=== PATIENT | male | born 1945 | race Caucasian/White ===

== ENCOUNTER 2017-02-16 19:35 | Emergency (ER) | payer MEDICARE ==
[2017-02-16] MEDS ORDERED: NS 0.9% 1000 ML* 1,000 ML IV SCH (20:45)
[2017-02-16 20:56] LABS: Hematocrit 45 % (42-52); Hemoglobin 15.2 g/dl (14.0-18.0); Mean Corpuscular HGB Conc 34 g/dl (31-36); Mean Corpuscular Hemoglobin 33 pg (27-31); Mean Corpuscular Volume 99 fL (80-94); Mean Platelet Volume 9 um3 (7.4-10.4); Red Blood Count 4.59 10^6/ul (4.0-5.4); Red Cell Distribution Width 13 % (10.5-15); White Blood Count 8.6 10^3/ul (3.5-10.8)
[2017-02-16] MEDS ORDERED: Magnesium Oxide TAB* 400 MG PO ONE (21:05)
[2017-02-16 21:12] LABS: ALT 49 U/L (7-52); Albumin 3.5 g/dL (3.2-5.2); Alkaline Phosphatase 84 U/L (34-104); BUN/Creatinine Ratio 21.8 (8-20); Blood Urea Nitrogen 22 mg/dL (6-24); C Reactive Protein < 1.00 mg/L (< 5.00); CO2 Carbon Dioxide 26 mmol/L (22-32); Calcium 8.8 mg/dL (8.6-10.3); Chloride 106 mmol/L (101-111); Creatine Kinase 83 U/L (10-223); EGFR African American 93.4 (>60); EGFR Non-African American 72.6 (>60); Globulin 2.6 g/dL (2-4); Glucose 109 mg/dL (70-100); Magnesium 2.1 mg/dL (1.9-2.7); Sodium 136 mmol/L (133-145); Total Protein 6.1 g/dL (6.4-8.9)
[2017-02-16 21:14] LABS: Troponin I 0.01 ng/mL (<0.04)
--- NOTE | 2017-02-16 21:25 | RAD ---
Indication: Palpitations. Hypertension. Chronic obstructive pulmonary disease. Comparison: October 16, 2014 Technique: Upright AP 2050 hours Report: Clear lungs and pleural spaces. Negative for pneumothorax. The heart, pulmonary vasculature, and mediastinal contours are unremarkable. Unremarkable osseous structures and soft tissue contours. IMPRESSION: No evidence for acute intrathoracic disease.
[2017-02-16 21:37] LABS: AST 43 U/L (13-39); Anion Gap 4 mmol/L (2-11); Potassium 3.9 mmol/L (3.5-5.0)
--- NOTE | 2017-02-16 22:27 | ED ---
Ranjan Pierre Benjamin, scribed for Tanner Dunne MD on 02/16/17 at 2049 . Palpitations / Dysrhythmia - HPI Summary HPI Summary: 71yo male who had a physically and mentally stressful last few weeks and experienced palpitations earlier today after he went for a long walk after not exercising for a long time. Pt states having intense workload lately, with 12 hours work per day, 7 days a week, for the past 3 weeks. Pt is also sleep deprived. Pt has hx of frequent PVCs, but not afib. His doctor advised him to come to test for afib. FHx of CAD, and HTN. Pt took 5mg bisoprolol for his heart. Pt states that he is dehydrated right now. - History of Current Complaint Chief Complaint: EDDysrhythmPalp Time Seen by Provider: 02/16/17 20:34 Hx Obtained From: Patient Onset/Duration: Sudden Onset, Lasting Minutes, Still Present Timing: Intermittent Episodes Lasting: Severity Initially: Mild Severity Currently: Mild Character: Irregular - PVCs Aggravating: Nothing Alleviating: Nothing Associated Signs & Symptoms: Negative - Allergy/Home Medications Allergies/Adverse Reactions: Allergies Allergy/AdvReac Type Severity Reaction Status Date / Time Ciprofloxacin [From Cipro] Allergy Severe Congestion Verified 06/18/16 20:48 Penicillins Allergy Intermediate Rash Verified 06/18/16 20:48 PMH/Surg Hx/FS Hx/Imm Hx Cardiovascular History: Reports: Hx Coronary Artery Disease, Hx Hypercholesterolemia, Hx Hypertension, Other Cardiovascular Problems/Disorders - PVCs Respiratory History: Reports: Hx Asthma - YRS.AGO, NOW NOT BAD, Hx Chronic Obstructive Pulmonary Disease (COPD) Sensory History: Reports: Hx Contacts or Glasses Opthamlomology History: Reports: Hx Contacts or Glasses - Surgical History Surgery Procedure, Year, and Place: hernia repair 1949 - Immunization History Date of Tetanus Vaccine: unk Date of Influenza Vaccine: none Infectious Disease History: Denies: Traveled Outside the [place] in Last 30 Days - Family History Known Family History: Positive: Cardiac Disease, Hypertension - Social History Occupation: Employed Full-time Lives: With Family Alcohol Use: Rare Alcohol Amount: 2x month Substance Use Type: Reports: None Hx Tobacco Use: No Smoking Status (MU): Never Smoked Tobacco Review of Systems Constitutional: Negative Eyes: Negative ENT: Negative Positive: Palpitations Respiratory: Negative Gastrointestinal: Negative Genitourinary: Negative Musculoskeletal: Negative Skin: Negative Neurological: Negative Psychological: Normal All Other Systems Reviewed And Are Negative: Yes Physical Exam Triage Information Reviewed: Yes Vital Signs On Initial Exam: Initial Vitals Temp Pulse Resp BP Pulse Ox 96.9 F 68 20 142/80 97 02/16/17 19:38 02/16/17 19:38 02/16/17 19:38 02/16/17 19:38 02/16/17 19:38 Vital Signs Reviewed: Yes Appearance: Positive: Well-Appearing, No Pain Distress, Well-Nourished Skin: Positive: Warm, Skin Color Reflects Adequate Perfusion, Dry Head/Face: Positive: Normal Head/Face Inspection Eyes: Positive: Normal, EOMI ENT: Positive: Normal ENT inspection Neck: Positive: Supple, Nontender Respiratory/Lung Sounds: Positive: Clear to Auscultation, Breath Sounds Present Cardiovascular: Positive: RRR Abdomen Description: Positive: Nontender, Soft Bowel Sounds: Positive: Present Musculoskeletal: Positive: Normal, Strength/ROM Intact Neurological: Positive: Normal, Sensory/Motor Intact, Alert, Oriented to Person Place, Time Psychiatric: Positive: Affect/Mood Appropriate Diagnostics - Vital Signs Vital Signs Temp Pulse Resp BP Pulse Ox 02/16/17 19:38 96.9 F 68 20 142/80 97 - Laboratory Lab Results: Lab Results 02/16/17 02/16/17 02/16/17 Range/Units 20:45 20:45 20:45 WBC 8.6 (3.5-10.8) 10^3/ul RBC 4.59 (4.0-5.4) 10^6/ul Hgb 15.2 (14.0-18.0) g/dl Hct 45 (42-52) % MCV 99 H (80-94) fL MCH 33 H (27-31) pg MCHC 34 (31-36) g/dl RDW 13 (10.5-15) % Plt Count 177 (150-450) 10^3/ul MPV 9 (7.4-10.4) um3 Neut % (Auto) 67.1 (38-83) % Lymph % (Auto) 21.9 L (25-47) % [place] % (Auto) 8.9 (1-9) % Eos % (Auto) 1.2 (0-6) % Baso % (Auto) 0.9 (0-2) % Absolute Neuts (auto) 5.8 (1.5-7.7) 10^3/ul Absolute Lymphs (auto) 1.9 (1.0-4.8) 10^3/ul Absolute Monos (auto) 0.8 (0-0.8) 10^3/ul Absolute Eos (auto) 0.1 (0-0.6) 10^3/ul Absolute Basos (auto) 0.1 (0-0.2) 10^3/ul Absolute Nucleated RBC 0.01 10^3/ul Nucleated RBC % 0.1 INR (Anticoag Therapy) 0.98 (0.89-1.11) APTT 28.6 (26.0-36.3) seconds D-Dimer, Quantitative < 200 (Less Than 230) ng/mL Sodium 136 (133-145) mmol/L Potassium 3.9 (3.5-5.0) mmol/L Chloride 106 (101-111) mmol/L Carbon Dioxide 26 (22-32) mmol/L Anion Gap 4 (2-11) mmol/L BUN 22 (6-24) mg/dL Creatinine 1.01 (0.67-1.17) mg/dL Est GFR ( Amer) 93.4 (>60) Est GFR (Non-Af Amer) 72.6 (>60) BUN/Creatinine Ratio 21.8 H (8-20) Glucose 109 H (70-100) mg/dL Calcium 8.8 (8.6-10.3) mg/dL Magnesium 2.1 (1.9-2.7) mg/dL Total Bilirubin 0.40 (0.2-1.0) mg/dL AST 43 H (13-39) U/L ALT 49 (7-52) U/L Alkaline Phosphatase 84 (34-104) U/L Total Creatine Kinase 83 (10-223) U/L CK-MB (CK-2) 2.0 (0.6-6.3) ng/mL Troponin I 0.01 (<0.04) ng/mL C-Reactive Protein < 1.00 (< 5.00) mg/L B-Natriuretic Peptide ( - 100) pg/mL Total Protein 6.1 L (6.4-8.9) g/dL Albumin 3.5 (3.2-5.2) g/dL Globulin 2.6 (2-4) g/dL Albumin/Globulin Ratio 1.3 (1-3) // Range/Units 20:45 WBC (3.5-10.8) 10^3/ul RBC (4.0-5.4) 10^6/ul Hgb (14.0-18.0) g/dl Hct (42-52) % MCV (80-94) fL MCH (27-31) pg MCHC (31-36) g/dl RDW (10.5-15) % Plt Count (150-450) 10^3/ul MPV (7.4-10.4) um3 Neut % (Auto) (38-83) % Lymph % (Auto) (25-47) % [place] % (Auto) (1-9) % Eos % (Auto) (0-6) % Baso % (Auto) (0-2) % Absolute Neuts (auto) (1.5-7.7) 10^3/ul Absolute Lymphs (auto) (1.0-4.8) 10^3/ul Absolute Monos (auto) (0-0.8) 10^3/ul Absolute Eos (auto) (0-0.6) 10^3/ul Absolute Basos (auto) (0-0.2) 10^3/ul Absolute Nucleated RBC 10^3/ul Nucleated RBC % INR (Anticoag Therapy) (0.89-1.11) APTT (26.0-36.3) seconds D-Dimer, Quantitative (Less Than 230) ng/mL Sodium (133-145) mmol/L Potassium (3.5-5.0) mmol/L Chloride (101-111) mmol/L Carbon Dioxide (22-32) mmol/L Anion Gap (2-11) mmol/L BUN (6-24) mg/dL Creatinine (0.67-1.17) mg/dL Est GFR ( Amer) (>60) Est GFR (Non-Af Amer) (>60) BUN/Creatinine Ratio (8-20) Glucose (70-100) mg/dL Calcium (8.6-10.3) mg/dL Magnesium (1.9-2.7) mg/dL Total Bilirubin (0.2-1.0) mg/dL AST (13-39) U/L ALT (7-52) U/L Alkaline Phosphatase (34-104) U/L Total Creatine Kinase (10-223) U/L CK-MB (CK-2) (0.6-6.3) ng/mL Troponin I (<0.04) ng/mL C-Reactive Protein (< 5.00) mg/L B-Natriuretic Peptide 300 H ( - 100) pg/mL Total Protein (6.4-8.9) g/dL Albumin (3.2-5.2) g/dL Globulin (2-4) g/dL Albumin/Globulin Ratio (1-3) Result Diagrams: 02/16/17 20:45 02/16/17 20:45 Lab Statement: Any lab studies that have been ordered have been reviewed, and results considered in the medical decision making process. - Radiology CXR Xray Interpretation: No Acute Changes Radiology Interpretation Completed By: Radiologist - EKG 1945 Cardiac Rate: NL - 96bpm EKG Rhythm: Sinus Rhythm EKG Interpretation: ventricular bigeminy. EKG Comparison: No Significant Change - from 06/18/16. Course/Dx - Course Course Of Treatment: NO CRITICAL CARE TIME. DISCUSSED RESULTS WITH PATIENT. HE WISHES TO GO HOME. HE HAS AN APPOINTMENT WITH HIS DIMENSION MILL WORKER IN [place] ON . AT DISCHARGE, HE STILL HAD PVCS BUT, WAS NO LONGER IN BIGEMINY. - Diagnoses Provider Diagnoses: Bigeminy, Palpitations Discharge - Discharge Plan Condition: Stable Disposition: HOME Patient Education Materials: Palpitations (ED) Referrals: Tray Wasserman MD [Primary Care Provider] - Additional Instructions: FOLLOW UP WITH YOUR DIMENSION MILL WORKER SCHEDULED. RETURN TO THE EMERGENCY DEPARTMENT FOR ANY WORSENING OF YOUR CONDITION; CHEST PAIN, SHORTNESS OF BREATH, YOU FEEL LIKE YOU ARE GOING TO PASS OUT, YOU FEEL ILL OR QUESTIONS OR CONCERNS. The documentation as recorded by the Ranjan waldron Benjamin accurately reflects the service I personally performed and the decisions made by me, Tanner Dunne MD.
[2017-02-16 22:35] VITALS: BP 118/95
== END 2017-02-16 22:36 | disposition home or self-care (01) ==
LOC: ED 19:35
DX: R00.2 Palpitations (principal); R00.8 Other abnormalities of heart beat
CPT/HCPCS: 36415; 71010; 80053; 82550; 82553; 83735; 83880; 84484; 85025; 85379; 85610; 85730; 86140; 93005; 99284

== ENCOUNTER 2017-02-21 19:38 | Emergency (ER) | payer MEDICARE ==
[2017-02-21 20:44] LABS: Hematocrit 42 % (42-52); Hemoglobin 14.2 g/dl (14.0-18.0); Mean Corpuscular HGB Conc 34 g/dl (31-36); Mean Corpuscular Hemoglobin 34 pg (27-31); Mean Corpuscular Volume 100 fL (80-94); Mean Platelet Volume 9 um3 (7.4-10.4); Red Cell Distribution Width 14 % (10.5-15); White Blood Count 7.4 10^3/ul (3.5-10.8)
[2017-02-21 20:59] LABS: Albumin 3.6 g/dL (3.2-5.2); BUN/Creatinine Ratio 18.1 (8-20); Calcium 8.9 mg/dL (8.6-10.3); EGFR African American 79.6 (>60); EGFR Non-African American 61.9 (>60); Globulin 2.3 g/dL (2-4); Magnesium 2.2 mg/dL (1.9-2.7); Potassium 4.1 mmol/L (3.5-5.0); Total Bilirubin 0.5 mg/dL (0.2-1.0); Total Protein 5.9 g/dL (6.4-8.9)
[2017-02-21 21:01] LABS: Troponin I 0.01 ng/mL (<0.04)
--- NOTE | 2017-02-21 21:16 | ED ---
Hebert Pierre Alok, scribed for Blayne Holden MD on 02/21/17 at 2017 . Palpitations / Dysrhythmia - HPI Summary HPI Summary: 71M presents to the ED for an irregular heart beat accompanied by chest tightness since 1800. Pt was last here 5 days ago for the same irregular rhythm and had EKG/CXR done. Pt notes recent increase in his Bisoprolol medications from 5mg BID to 7.5 mg BID. Pt states that tonight since his Bisoprolol medications were not helping his irregular heart rate taking a total of 17.5 mg today. Pt also took 30 mg of his isosorbide mononitrate today. Pt state he has a follow up appointment with his lead programmer in [place] in two days. - History of Current Complaint Chief Complaint: EDDysrhythmPalp Time Seen by Provider: 02/21/17 20:10 Hx Obtained From: Patient Onset/Duration: Lasting Hours, Still Present Timing: Constant Severity Initially: Moderate Severity Currently: Moderate Character: Irregular Aggravating: Exertion Alleviating: Nothing Associated Signs & Symptoms: Chest Pain - Allergy/Home Medications Allergies/Adverse Reactions: Allergies Allergy/AdvReac Type Severity Reaction Status Date / Time Ciprofloxacin [From Cipro] Allergy Severe Congestion Verified 06/18/16 20:48 Penicillins Allergy Intermediate Rash Verified 06/18/16 20:48 PMH/Surg Hx/FS Hx/Imm Hx Cardiovascular History: Reports: Hx Coronary Artery Disease, Hx Hypercholesterolemia, Hx Hypertension, Other Cardiovascular Problems/Disorders - PVCs Respiratory History: Reports: Hx Asthma - YRS.AGO, NOW NOT BAD, Hx Chronic Obstructive Pulmonary Disease (COPD) Sensory History: Reports: Hx Contacts or Glasses Opthamlomology History: Reports: Hx Contacts or Glasses - Surgical History Surgery Procedure, Year, and Place: hernia repair 1949 - Immunization History Date of Tetanus Vaccine: unk Date of Influenza Vaccine: none Infectious Disease History: No Infectious Disease History: Reports: Traveled Outside the [place] in Last 30 Days - he - Family History Known Family History: Positive: Cardiac Disease, Hypertension - Social History Occupation: Employed Full-time Lives: With Family Alcohol Use: Rare Alcohol Amount: 2x month Substance Use Type: Reports: None Hx Tobacco Use: No Smoking Status (MU): Never Smoked Tobacco Review of Systems Negative: Fever Positive: Palpitations, Chest Pain All Other Systems Reviewed And Are Negative: Yes Physical Exam Triage Information Reviewed: Yes Vital Signs On Initial Exam: Initial Vitals Temp Pulse Resp BP Pulse Ox 98 F 59 16 115/57 96 02/21/17 19:46 02/21/17 19:46 02/21/17 19:46 02/21/17 19:46 02/21/17 19:46 Vital Signs Reviewed: Yes Appearance: Positive: Well-Appearing, No Pain Distress Skin: Positive: Warm Head/Face: Positive: Normal Head/Face Inspection ENT: Positive: Hearing grossly normal Neck: Positive: Supple Respiratory/Lung Sounds: Positive: Breath Sounds Present Cardiovascular: Positive: RRR - occaional extrasystoles Abdomen Description: Positive: Nontender, Soft Bowel Sounds: Positive: Present Musculoskeletal: Positive: Strength/ROM Intact Neurological: Positive: Alert, Oriented to Person Place, Time Psychiatric: Positive: Affect/Mood Appropriate Diagnostics - Vital Signs Vital Signs Temp Pulse Resp BP Pulse Ox 02/21/17 19:46 98 F 59 16 115/57 96 - Laboratory Lab Results: Lab Results 02/21/17 02/21/17 02/21/17 Range/Units 20:35 20:35 20:35 WBC 7.4 (3.5-10.8) 10^3/ul RBC 4.20 (4.0-5.4) 10^6/ul Hgb 14.2 (14.0-18.0) g/dl Hct 42 (42-52) % MCV 100 H (80-94) fL MCH 34 H (27-31) pg MCHC 34 (31-36) g/dl RDW 14 (10.5-15) % Plt Count 166 (150-450) 10^3/ul MPV 9 (7.4-10.4) um3 Neut % (Auto) 68.5 (38-83) % Lymph % (Auto) 19.8 L (25-47) % [place] % (Auto) 8.9 (1-9) % Eos % (Auto) 1.8 (0-6) % Baso % (Auto) 1.0 (0-2) % Absolute Neuts (auto) 5.0 (1.5-7.7) 10^3/ul Absolute Lymphs (auto) 1.5 (1.0-4.8) 10^3/ul Absolute Monos (auto) 0.7 (0-0.8) 10^3/ul Absolute Eos (auto) 0.1 (0-0.6) 10^3/ul Absolute Basos (auto) 0.1 (0-0.2) 10^3/ul Absolute Nucleated RBC 0 10^3/ul Nucleated RBC % 0 D-Dimer, Quantitative (Less Than 230) ng/mL Sodium 137 (133-145) mmol/L Potassium 4.1 (3.5-5.0) mmol/L Chloride 105 (101-111) mmol/L Carbon Dioxide 27 (22-32) mmol/L Anion Gap 5 (2-11) mmol/L BUN 21 (6-24) mg/dL Creatinine 1.16 (0.67-1.17) mg/dL Est GFR ( Amer) 79.6 (>60) Est GFR (Non-Af Amer) 61.9 (>60) BUN/Creatinine Ratio 18.1 (8-20) Glucose 93 (70-100) mg/dL Lactic Acid 0.7 (0.5-2.0) mmol/L Calcium 8.9 (8.6-10.3) mg/dL Magnesium 2.2 (1.9-2.7) mg/dL Total Bilirubin 0.50 (0.2-1.0) mg/dL AST 38 (13-39) U/L ALT 52 (7-52) U/L Alkaline Phosphatase 73 (34-104) U/L Troponin I 0.01 (<0.04) ng/mL Total Protein 5.9 L (6.4-8.9) g/dL Albumin 3.6 (3.2-5.2) g/dL Globulin 2.3 (2-4) g/dL Albumin/Globulin Ratio 1.6 (1-3) 02/21/17 Range/Units 20:35 WBC (3.5-10.8) 10^3/ul RBC (4.0-5.4) 10^6/ul Hgb (14.0-18.0) g/dl Hct (42-52) % MCV (80-94) fL MCH (27-31) pg MCHC (31-36) g/dl RDW (10.5-15) % Plt Count (150-450) 10^3/ul MPV (7.4-10.4) um3 Neut % (Auto) (38-83) % Lymph % (Auto) (25-47) % [place] % (Auto) (1-9) % Eos % (Auto) (0-6) % Baso % (Auto) (0-2) % Absolute Neuts (auto) (1.5-7.7) 10^3/ul Absolute Lymphs (auto) (1.0-4.8) 10^3/ul Absolute Monos (auto) (0-0.8) 10^3/ul Absolute Eos (auto) (0-0.6) 10^3/ul Absolute Basos (auto) (0-0.2) 10^3/ul Absolute Nucleated RBC 10^3/ul Nucleated RBC % D-Dimer, Quantitative < 200 (Less Than 230) ng/mL Sodium (133-145) mmol/L Potassium (3.5-5.0) mmol/L Chloride (101-111) mmol/L Carbon Dioxide (22-32) mmol/L Anion Gap (2-11) mmol/L BUN (6-24) mg/dL Creatinine (0.67-1.17) mg/dL Est GFR ( Amer) (>60) Est GFR (Non-Af Amer) (>60) BUN/Creatinine Ratio (8-20) Glucose (70-100) mg/dL Lactic Acid (0.5-2.0) mmol/L Calcium (8.6-10.3) mg/dL Magnesium (1.9-2.7) mg/dL Total Bilirubin (0.2-1.0) mg/dL AST (13-39) U/L ALT (7-52) U/L Alkaline Phosphatase (34-104) U/L Troponin I (<0.04) ng/mL Total Protein (6.4-8.9) g/dL Albumin (3.2-5.2) g/dL Globulin (2-4) g/dL Albumin/Globulin Ratio (1-3) Result Diagrams: 02/21/17 20:35 02/21/17 20:35 Lab Statement: Any lab studies that have been ordered have been reviewed, and results considered in the medical decision making process. - EKG 1950 Cardiac Rate: Other Rate - 53 bpm EKG Interpretation: Ventricular trigeminy Re-Evaluation - Re-Evaluation First Eval Re-Evaluation Time: 21:34 Change: Improved Comment: Discussed pt lab results. Pt will be discharged home with instructions to keep his appotinment with his regular doctor. Pt agrees with this. Course/Dx - Diagnoses Provider Diagnoses: Palpitations Discharge - Discharge Plan Condition: Improved Disposition: HOME Patient Education Materials: Palpitations (ED) Referrals: Tray Wasserman MD [Primary Care Provider] - Additional Instructions: Please follow up with your doctor as scheduled The documentation as recorded by the Hebert waldron Alok accurately reflects the service I personally performed and the decisions made by me, Blayne Holden MD.
[2017-02-21 21:47] VITALS: BP 142/67
== END 2017-02-21 21:50 | disposition home or self-care (01) ==
LOC: ED 19:38
DX: R07.9 Chest pain, unspecified (principal); R00.2 Palpitations
CPT/HCPCS: 36415; 80053; 83605; 83735; 84484; 85025; 85379; 93005; 99282

== ENCOUNTER 2017-08-03 11:21 | Emergency (ER) | payer MEDICARE ==
[2017-08-03 12:07] LABS: ABS Basophils 0 10^3/ul (0-0.2); ABS Eosinophils 0.1 10^3/ul (0-0.6); ABS Lymphocytes 1.1 10^3/ul (1.0-4.8); ABS Monocytes 0.6 10^3/ul (0-0.8); ABS Neutrophils 5.1 10^3/ul (1.5-7.7); ABS Nucleated RBC 0 10^3/ul; Eosinophil % 1.4 % (0-6); Hematocrit 41 % (42-52); Hemoglobin 14.1 g/dl (14.0-18.0); Lymphocyte % 16.1 % (25-47); Mean Corpuscular HGB Conc 34 g/dl (31-36); Mean Corpuscular Hemoglobin 34 pg (27-31); Mean Corpuscular Volume 99 fL (80-94); Mean Platelet Volume 8 um3 (7.4-10.4); Nucleated Red Blood Cells % 0; Platelet Count 202 10^3/ul (150-450); Red Blood Count 4.17 10^6/ul (4.0-5.4); Red Cell Distribution Width 13 % (10.5-15)
[2017-08-03 12:21] LABS: EGFR Non-African American 74.1 (>60)
[2017-08-03] MEDS ORDERED: NS 0.9% 1000 ML* 1,000 ML IV ONE (13:24)
[2017-08-03] MEDS ORDERED: Aspirin TAB* 325 MG PO ONE (14:24)
[2017-08-03 16:40] VITALS: BP 00/0
--- NOTE | 2017-08-05 13:55 | ED ---
Rc Pierre Stephanie, scribed for Marcos Wayne MD on 08/03/17 at 1200 . HPI Chest Pain - HPI Summary HPI Summary: The pt is a 72 y/o M with c/o CP that began at 01:00 today after he attempted to run up a hill. Symptoms include intermittent SOB (which began after starting beta blockers and calcium channel blockers), muscle weakness, and palpitations. He denies diaphoresis, sharp CP, chest pressure, chills, fever, sweats, and body aches. The pt was concerned of his heart activity because he is planning on going on a long drive today. The pt has a history of experiencing PVCs and trigemini. The pt reports that his weakness lasted for about 30 minutes after exertion at 01:00 today. The pt denies current pains. The pts childcare director is Anjali Villafuerte, , fax: [phone] - History of Current Complaint Chief Complaint: EDChestPainROMI Time Seen by Provider: 08/03/17 11:47 Hx Obtained From: Patient Onset/Duration: Started Hours Ago - 10 Timing: Intermittent Current Severity: None Pain Intensity: 0 Pain Scale Used: 0-10 Numeric Chest Pain Location: Diffuse Chest Pain Radiates: No Aggravating Factor(s): Exertion, Position, Medications Alleviating Factor(s): Rest Associated Signs and Symptoms: Positive: Chest Pain, Weakness - for 30 minutes post-exertion, Shortness of Breath, Palpitations. Negative: Fever, Chills, Diaphoresis - Allergy/Home Medications Allergies/Adverse Reactions: Allergies Allergy/AdvReac Type Severity Reaction Status Date / Time Ciprofloxacin [From Cipro] Allergy Severe Congestion Verified 06/02/17 13:50 Penicillins Allergy Intermediate Rash Verified 06/02/17 13:50 Home Medications: Home Medications Ascorbic Acid TAB* [Vitamin C TAB*] 500 mg PO DAILY 08/03/17 [History Confirmed 08/03/17] Aspirin Low Dose CHEW TAB* [Aspirin Low Dose TAB*] 81 mg PO DAILY 08/03/17 [ History Confirmed 08/03/17] Diltiazem TAB* [Cardizem 30 MG Tab*] 30 mg PO QID 08/03/17 [History Confirmed ] Nitroglycerin TAB 0.4 MG* 0.4 mg SL Q5M PRN 08/03/17 [History Confirmed 08/03/17 ] Silodosin(NF) [Rapaflo(NF)] 8 mg PO DAILY 08/03/17 [History Confirmed 08/03/17] oxyCODONE/Acetamin 5/325 MG* [Percocet 5/325 TAB*] 1 tab PO Q4H PRN 08/03/17 [ History Confirmed 08/03/17] PMH/Surg Hx/FS Hx/Imm Hx Cardiovascular History: Reports: Hx Coronary Artery Disease, Hx Hypercholesterolemia, Hx Hypertension, Other Cardiovascular Problems/Disorders - PVCs Denies: Hx Pacemaker/ICD Respiratory History: Reports: Hx Asthma - YRS.AGO, NOW NOT BAD, Hx Chronic Obstructive Pulmonary Disease (COPD) Musculoskeletal History: Reports: Hx Back Problems - chronic back pain Sensory History: Reports: Hx Contacts or Glasses Denies: Hx Hearing Aid Opthamlomology History: Reports: Hx Contacts or Glasses EENT History: Denies: Hx Deafness Neurological History: Reports: Other Neuro Impairments/Disorders - PAIN CLINIC PT Psychiatric History: Denies: Hx Panic Disorder - Surgical History Surgery Procedure, Year, and Place: hernia repair 1949 - Immunization History Date of Tetanus Vaccine: unk Date of Influenza Vaccine: none Infectious Disease History: No Infectious Disease History: Denies: Traveled Outside the [place] in Last 30 Days - Family History Known Family History: Positive: Cardiac Disease, Hypertension - Social History Occupation: Employed Full-time Lives: With Family Alcohol Use: Rare Alcohol Amount: 2x month Hx Substance Use: No Substance Use Type: Reports: None Hx Tobacco Use: No Smoking Status (MU): Never Smoked Tobacco Have You Smoked in the Last Year: No Review of Systems Negative: Fever, Chills, Skin Diaphoresis Negative: Erythema Negative: Sore Throat Positive: Palpitations. Negative: Chest Pain - Negative: sharp CP, chest pressure Positive: Shortness Of Breath. Negative: Cough Negative: Abdominal Pain, Vomiting, Nausea Negative: dysuria, hematuria Negative: Myalgia, Edema Negative: Rash Neurological: Other - Negative: dizziness Positive: Weakness All Other Systems Reviewed And Are Negative: Yes Physical Exam - Summary Physical Exam Summary: Constitutional: Well-developed, Well-nourished, Alert. (-) Distressed Skin: Warm, Dry HENT: Normocephalic; Atraumatic Eyes: Conjunctiva normal Neck: Musculoskeletal ROM normal neck. (-) JVD, (-) Stridor, (-) Tracheal deviation Cardio: Rhythm regular, rate normal, Heart sounds normal; Intact distal pulses; The pedal pulses are 2+ and symmetric. Radial pulses are 2+ and symmetric. (-) Murmur Pulmonary/Chest wall: Effort normal. (-) Respiratory distress, (-) Wheezes, (-) Rales Abd: Soft, (-) Tenderness, (-) Distension, (-) Guarding, (-) Rebound Musculoskeletal: (-) Edema Lymph: (-) Cervical adenopathy Neuro: Alert, Oriented x3 Psych: Mood and affect Normal Triage Information Reviewed: Yes Vital Signs On Initial Exam: Initial Vitals Temp Pulse Resp BP Pulse Ox 97.7 F 74 18 113/64 97 08/03/17 11:22 08/03/17 11:22 08/03/17 11:22 08/03/17 11:22 08/03/17 11:22 Vital Signs Reviewed: Yes - Michelle Coma Scale Coma Scale Total: 15 Diagnostics - Vital Signs Vital Signs Temp Pulse Resp BP Pulse Ox 08/03/17 11:22 97.7 F 74 18 113/64 97 - Laboratory Result Diagrams: 08/03/17 11:57 08/03/17 11:57 Lab Statement: Any lab studies that have been ordered have been reviewed, and results considered in the medical decision making process. - EKG 11:27 EKG Rhythm: Sinus Rhythm - 56 BPM EKG Interpretation: trigeminy Re-Evaluation - Re-Evaluation First Eval Re-Evaluation Time: 15:07 Change: Unchanged - Upon re-eval, the pt is expressing the desire to leave against medical advice. He understands the risk of heart attack, disability and . Chest Pain Course/Dx - Course Course Of Treatment: At 14:20 ED physician spoke with Dr. Susana Villafuerte, childcare director of pt. ED physician reviewed pt presentation with his childcare director from [facility]. Her plan is to titrate medications prior to ablation. Reviewed prior cardiac catheterizations from 2006 and 2008 which showed moderate disease in L and R coronaries. Due to history of CAD, she recommended full workup and cardiology consultation with Dr. Molina and admission to the hospital. Pt desires to leave the hospital against medical advice. - Diagnoses Provider Diagnoses: exertional symptoms, CAD (coronary artery disease) Discharge - Discharge Plan Condition: Stable Disposition: AGAINST MEDICAL ADVICE Referrals: Tray Wasserman MD [Primary Care Provider] - Additional Instructions: RETURN TO THE EMERGENCY DEPARTMENT FOR CHANGING OR WORSENING SYMPTOMS The documentation as recorded by the Rc waldron Stephanie accurately reflects the service I personally performed and the decisions made by , Marcos Wayne MD.
== END 2017-08-03 16:39 | disposition left against medical advice (07) ==
LOC: ED 11:21
DX: I25.10 Atherosclerotic heart disease of native coronary artery without angina pectoris (principal); R00.2 Palpitations; R06.02 Shortness of breath; R07.9 Chest pain, unspecified; R53.1 Weakness
CPT/HCPCS: 36415; 80053; 83605; 84484; 85025; 93005; 99283

== ENCOUNTER 2017-08-06 02:11 | Emergency (ER) | payer MEDICARE ==
[2017-08-06 06:44] VITALS: BP 125/69
--- NOTE | 2017-08-06 08:21 | RAD ---
Indication: Chest pain. 2 views of the chest including dual energy PA views are reviewed and compared to previous exam dated February 16, 2017. No mediastinal shift is noted. Heart is of normal size and configuration. Lung patino are clear. IMPRESSION: No active cardiopulmonary disease is noted.
--- NOTE | 2017-08-13 00:23 | ED ---
Ольга Pierre Emily, scribed for Anthony Rascon MD on 08/06/17 at 0322 . HPI Chest Pain - HPI Summary HPI Summary: This patient is a 72 year old M presenting to [facility] with a chief complaint of L- sided CP that began at 0000. 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 The patient rates the pain 3 /10 in severity. Symptoms aggravated by nothing. Symptoms alleviated by nothing. Patient denies SOB, N/V/D, and diaphoresis. Pt reports previous angina. - History of Current Complaint Chief Complaint: EDChestPainROMI Hx Obtained From: Patient Onset/Duration: Started Hours Ago, Resolved Timing: Constant Initial Severity: Mild Current Severity: Mild Pain Intensity: 3 Pain Scale Used: 0-10 Numeric Chest Pain Location: Left Lateral Aggravating Factor(s): Nothing Alleviating Factor(s): Nothing Associated Signs and Symptoms: Negative: Shortness of Breath, Diaphoresis, Nausea, Vomiting - Allergy/Home Medications Allergies/Adverse Reactions: Allergies Allergy/AdvReac Type Severity Reaction Status Date / Time Ciprofloxacin [From Cipro] Allergy Severe Congestion Verified 08/06/17 02:42 Penicillins Allergy Intermediate Rash Verified 08/06/17 02:42 PMH/Surg Hx/FS Hx/Imm Hx Previously Healthy: No Cardiovascular History: Reports: Hx Coronary Artery Disease, Hx Hypercholesterolemia, Hx Hypertension, Other Cardiovascular Problems/Disorders - PVCs Denies: Hx Pacemaker/ICD Respiratory History: Reports: Hx Asthma - YRS.AGO, NOW NOT BAD, Hx Chronic Obstructive Pulmonary Disease (COPD) Musculoskeletal History: Reports: Hx Back Problems - chronic back pain Sensory History: Reports: Hx Contacts or Glasses Denies: Hx Deafness, Hx Hearing Aid Opthamlomology History: Reports: Hx Contacts or Glasses Neurological History: Reports: Other Neuro Impairments/Disorders - PAIN CLINIC PT Psychiatric History: Denies: Hx Panic Disorder - Surgical History Surgery Procedure, Year, and Place: hernia repair 1949 - Immunization History Date of Tetanus Vaccine: unk Date of Influenza Vaccine: none Infectious Disease History: No Infectious Disease History: Denies: Traveled Outside the [place] in Last 30 Days - Family History Known Family History: Positive: Cardiac Disease, Hypertension - Social History Occupation: Employed Full-time Lives: Alone Alcohol Use: Rare Alcohol Amount: 2x month Hx Substance Use: No Substance Use Type: Reports: None Hx Tobacco Use: No Smoking Status (MU): Never Smoked Tobacco Have You Smoked in the Last Year: No Review of Systems Negative: Skin Diaphoresis Positive: Chest Pain Negative: Shortness Of Breath Negative: Vomiting, Diarrhea, Nausea All Other Systems Reviewed And Are Negative: Yes Physical Exam - Summary Physical Exam Summary: Appearance: Well-appearing, Well-nourished Skin: Warm, Dry, No rash Eyes: Normal, PERRL, EOMI, sclera anicteric ENT: Normal Neck: Supple, nontender Respiratory: Few rales in L base Cardiovascular: S1, S2, no murmur, no rub, no gallop Abdomen: Soft, nontender, no organomegaly Bowel sounds: Present Musculoskeletal: Normal, Strength/ROM Intact, no edema, pulses symmetrical Neurological: Normal, A&Ox3, cranial nerves II-XII WNL, follows commands, gait not tested, sensation intact to pin and light touch Psychiatric: affect normal, behavior appropriate, dressed appropriately, judgment intact Triage Information Reviewed: Yes Vital Signs On Initial Exam: Initial Vitals Temp Pulse Resp BP Pulse Ox 97.0 F 52 16 132/75 96 08/06/17 02:14 08/06/17 02:14 08/06/17 02:14 08/06/17 02:14 08/06/17 02:14 Vital Signs Reviewed: Yes - Michelle Coma Scale Coma Scale Total: 15 Diagnostics - Vital Signs Vital Signs Temp Pulse Resp BP Pulse Ox 08/06/17 02:53 56 08/06/17 02:14 97.0 F 52 16 132/75 96 - Laboratory Lab Statement: Any lab studies that have been ordered have been reviewed, and results considered in the medical decision making process. - Radiology CXR Radiology Interpretation Completed By: ED Physician - CXR reveals, per ED physician, no acute disease. - EKG 0221 Cardiac Rate: Bradycardia EKG Rhythm: Sinus Rhythm - 70 BPM EKG Interpretation: VPCs. RBBB Chest Pain Course/Dx - Course Assessment/Plan: This patient is a 72 year old M presenting to [facility] with a chief complaint of L-sided CP that began at 0000. 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 Physical Exam Findings. Few rales in L base. Bloodwork obtained. An EKG taken at 0221 reveals sinus bradycardia at 70 BPM with VPCs and RBBB. CXR reveals, per ED physician, no acute disease. Pt denied bloodwork and XR. Pt left AMA. - Diagnoses Provider Diagnoses: Atypical chest pain, VPC (ventricular premature complex) Provider Diagnoses: (Ruled Out): Angina at rest Discharge - Discharge Plan Condition: Good Disposition: HOME Patient Education Materials: Angina (ED), Premature Ventricular Contractions ( ED) Referrals: Tray Wasserman MD [Primary Care Provider] - The documentation as recorded by the Ольга waldron Emily accurately reflects the service I personally performed and the decisions made by me, Anthony Rascon MD.
== END 2017-08-06 06:44 | disposition home or self-care (01) ==
LOC: ED 02:11
DX: R07.89 Other chest pain (principal); I49.3 Ventricular premature depolarization; Z86.79 Personal history of other diseases of the circulatory system; Z87.09 Personal history of other diseases of the respiratory system
CPT/HCPCS: 71046; 93005; 99282

== ENCOUNTER 2018-12-17 06:41 | Emergency (ER) | payer MEDICARE ==
[2018-12-17] MEDS ORDERED: Aspirin 81 mg CHEW TAB* 81 MG TAB.CHEW PO ONE (07:13)
[2018-12-17 08:03] LABS: Activated Partial Thrombo Time 29.8 seconds (26.0-36.3); INR 1.12 (0.82-1.09)
[2018-12-17 08:10] LABS: Albumin 3.9 g/dL (3.2-5.2); Albumin/Globulin Ratio 1.6 (1-3); BUN/Creatinine Ratio 15.7 (8-20); Calcium 8.9 mg/dL (8.6-10.3); EGFR African American 86.4 (>60); EGFR Non-African American 71.4 (>60); Globulin 2.4 g/dL (2-4); Total Bilirubin 0.6 mg/dL (0.2-1.0); Total Protein 6.3 g/dL (6.4-8.9)
[2018-12-17 08:14] LABS: ABS Eosinophils 0.1 10^3/ul (0-0.6); ABS Lymphocytes 1.4 10^3/ul (1.0-4.8); ABS Monocytes 0.7 10^3/ul (0-0.8); ABS Neutrophils 4.5 10^3/ul (1.5-7.7); Eosinophil % 1.7 %; Hematocrit 44 % (42-52); Hemoglobin 14.6 g/dL (14.0-18.0); Lymphocyte % 21.1 %; Mean Corpuscular HGB Conc 34 g/dL (31-36); Mean Corpuscular Hemoglobin 33 pg (27-31); Mean Corpuscular Volume 99 fL (80-94); Mean Platelet Volume 9.1 fL (7.4-10.4); Platelet Count 124 10^3/uL (150-450); Red Blood Count 4.42 10^6 /uL (4.18-5.48); Red Cell Distribution Width 13 % (10.5-15); White Blood Count 6.8 10^3/uL (3.5-10.8)
[2018-12-17 08:15] LABS: Myoglobin 37.6 ng/mL (17.4-105.7)
[2018-12-17 08:16] LABS: CKMB ng/mL 1.1 ng/mL (0.6-6.3)
[2018-12-17 09:02] VITALS: BP 139/87
--- NOTE | 2018-12-17 09:15 | ED ---
HPI Cardiac - HPI Summary HPI Summary: Patient is a 73-year-old male who presents to the ED with 1 week history of left -sided chest pain. He describes this pain as inflammation not pressure or pain. He states the discomfort. He states he feels an artery running vertical down his heart as "pulsating." Denies SOB. Symptoms began approximately 1 week ago, however remained intermittent until this morning which has been constant. He does take a 324 aspirin daily and took this this morning. On arrival, he states he continues to have the pain, which is worse with movement and better with rest. The chest discomfort does not change with arm movement, however changes with positioning in general. Denie denies any headache. Denies any leg swelling, weakness, fevers, sweats, chills. Denies back pain. Denies visual changes. He does have a history of bradycardia. 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 He sees a PCP here in the [place] area, however his curator of manuscripts is in [place] as well as [place]. His last checkup was normal. - History of Current Complaint Chief Complaint: EDChestPainROMI Stated Complaint: "CHEST PAIN" PER PT Time Seen by Provider: 12/17/18 07:13 Hx Obtained From: Patient Onset/Duration: Started Hours Ago Timing: Constant Initial Severity: Mild Current Severity: Mild Pain Intensity: 2 Pain Scale Used: 0-10 Numeric Chest Pain Location: Left Anterior Chest Pain Radiates: No Aggravating Factor(s): Position Alleviating Factor(s): Position Associated Signs and Symptoms: Negative: Chest Pain, Vision Changes, Anxiety, Recent Stress, Weakness, Dizziness, Shortness of Breath, Chills, Lightheadedness , Diaphoresis, Palpitations - Risk Factors Pulmonary Embolism Risk Factors: Negative Cardiac Risk Factors: Negative Atrial Fibrillation Risk Factors: Negative TAD Risk Factors: Negative AMI/ACS Risk Factors: Hypertension Pseudomonas Risk Factors: Negative Tuberculosis Risk Factors: Negative - Allergy/Home Medications Allergies/Adverse Reactions: Allergies Allergy/AdvReac Type Severity Reaction Status Date / Time ciprofloxacin [From Cipro] Allergy Congestion Verified 12/17/18 06:52 Penicillins Allergy Rash Verified 12/17/18 06:52 Home Medications: Home Medications Mexiletine CAP* [Mexitil CAP*] 1 cap PO TID 12/17/18 [History Confirmed 12/17/18 ] PMH/Surg Hx/FS Hx/Imm Hx Previously Healthy: Yes Cardiovascular History: Reports: Hx Coronary Artery Disease, Hx Hypercholesterolemia, Hx Hypertension, Other Cardiovascular Problems/Disorders - PVCs Denies: Hx Congestive Heart Failure, Hx Pacemaker/ICD Respiratory History: Reports: Hx Asthma - YRS.AGO, NOW NOT BAD, Hx Chronic Obstructive Pulmonary Disease (COPD) Musculoskeletal History: Reports: Hx Back Problems - chronic back pain Sensory History: Reports: Hx Contacts or Glasses Denies: Hx Deafness, Hx Hearing Aid Opthamlomology History: Reports: Hx Contacts or Glasses Neurological History: Reports: Other Neuro Impairments/Disorders - PAIN CLINIC PT Psychiatric History: Denies: Hx Panic Disorder - Surgical History Surgery Procedure, Year, and Place: hernia repair 1949 - Immunization History Date of Tetanus Vaccine: unk Date of Influenza Vaccine: none Hx Pertussis Vaccination: No Immunizations Up to Date: Yes Infectious Disease History: No Infectious Disease History: Denies: Traveled Outside the [place] in Last 30 Days - Family History Known Family History: Positive: Cardiac Disease, Hypertension - Social History Occupation: Employed Full-time Lives: With Family Alcohol Use: Rare Alcohol Amount: 2x month Hx Substance Use: No Substance Use Type: Reports: None Hx Tobacco Use: No Smoking Status (MU): Never Smoked Tobacco Have You Smoked in the Last Year: No Review of Systems Constitutional: Negative Negative: Fever, Chills, Fatigue, Skin Diaphoresis Negative: Dental Pain Positive: Chest Pain - left chest wall worse with movement. Negative: Palpitations Negative: Shortness Of Breath, Cough Genitourinary: Negative Musculoskeletal: Negative Skin: Negative All Other Systems Reviewed And Are Negative: Yes Physical Exam Triage Information Reviewed: Yes Vital Signs On Initial Exam: Initial Vitals Temp Pulse Resp BP Pulse Ox 97.9 F 54 18 155/72 98 12/17/18 06:50 12/17/18 06:50 12/17/18 06:50 12/17/18 06:50 12/17/18 06:50 Vital Signs Reviewed: Yes Appearance: Positive: Well-Appearing, Well-Nourished Skin: Positive: Warm, Skin Color Reflects Adequate Perfusion Head/Face: Positive: Normal Head/Face Inspection Eyes: Positive: EOMI, Conjunctiva Clear Neck: Positive: Supple, No Lymphadenopathy Respiratory/Lung Sounds: Positive: Clear to Auscultation, Breath Sounds Present Cardiovascular: Positive: RRR, Pulses are Symmetrical in both Upper and Lower Extremities. Negative: Tachycardia, Leg Edema Left, Leg Edema Right Musculoskeletal: Positive: Normal, Strength/ROM Intact Neurological: Positive: Sensory/Motor Intact, Alert, Oriented to Person Place, Time Psychiatric: Positive: Normal, Affect/Mood Appropriate AVPU Assessment: Alert Diagnostics - Vital Signs Vital Signs Temp Pulse Resp BP Pulse Ox 12/17/18 09:00 46 93 12/17/18 08:56 45 139/87 92 12/17/18 08:26 45 13 140/86 91 12/17/18 08:04 73 93 12/17/18 07:56 45 20 141/80 93 12/17/18 07:26 20 142/85 12/17/18 07:22 48 18 160/86 93 12/17/18 07:21 48 17 157/87 94 12/17/18 07:00 48 12 94 12/17/18 06:56 48 12 140/85 94 12/17/18 06:55 50 10 95 12/17/18 06:50 97.9 F 54 18 155/72 98 - Laboratory Lab Results: Lab Results 12/17/18 12/17/18 12/17/18 Range/Units 07:45 07:45 07:45 WBC 6.8 (3.5-10.8) 10^3/uL RBC 4.42 (4.18-5.48) 10^6 /uL Hgb 14.6 (14.0-18.0) g/dL Hct 44 (42-52) % MCV 99 H (80-94) fL MCH 33 H (27-31) pg MCHC 34 (31-36) g/dL RDW 13 (10.5-15) % Plt Count 124 L (150-450) 10^3/uL MPV 9.1 (7.4-10.4) fL Neut % (Auto) 65.5 % Lymph % (Auto) 21.1 % Cuming % (Auto) 11.0 % Eos % (Auto) 1.7 % Baso % (Auto) 0.7 % Absolute Neuts (auto) 4.5 (1.5-7.7) 10^3/ul Absolute Lymphs (auto) 1.4 (1.0-4.8) 10^3/ul Absolute Monos (auto) 0.7 (0-0.8) 10^3/ul Absolute Eos (auto) 0.1 (0-0.6) 10^3/ul Absolute Basos (auto) 0.0 (0-0.2) 10^3/ul Absolute Nucleated RBC 0.0 10^3/ul Nucleated RBC % 0.0 INR (Anticoag Therapy) (0.82-1.09) APTT (26.0-36.3) seconds Sodium 139 (135-145) mmol/L Potassium 4.0 (3.5-5.0) mmol/L Chloride 105 (101-111) mmol/L Carbon Dioxide 28 (22-32) mmol/L Anion Gap 6 (2-11) mmol/L BUN 16 (6-24) mg/dL Creatinine 1.02 (0.67-1.17) mg/dL Est GFR ( Amer) 86.4 (>60) Est GFR (Non-Af Amer) 71.4 (>60) BUN/Creatinine Ratio 15.7 (8-20) Glucose 107 H (70-100) mg/dL Lactic Acid (0.5-2.0) mmol/L Calcium 8.9 (8.6-10.3) mg/dL Magnesium 2.0 (1.9-2.7) mg/dL Total Bilirubin 0.60 (0.2-1.0) mg/dL AST 20 (13-39) U/L ALT 27 (7-52) U/L Alkaline Phosphatase 95 (34-104) U/L Total Creatine Kinase 66 (10-223) U/L CK-MB (CK-2) 1.1 (0.6-6.3) ng/mL Myoglobin 37.6 (17.4-105.7) ng/mL Troponin I 0.00 (<0.04) ng/mL B-Natriuretic Peptide 150 H (<=100) pg/mL Total Protein 6.3 L (6.4-8.9) g/dL Albumin 3.9 (3.2-5.2) g/dL Globulin 2.4 (2-4) g/dL Albumin/Globulin Ratio 1.6 (1-3) 12/17/18 12/17/18 Range/Units 07:45 07:45 WBC (3.5-10.8) 10^3/uL RBC (4.18-5.48) 10^6 /uL Hgb (14.0-18.0) g/dL Hct (42-52) % MCV (80-94) fL MCH (27-31) pg MCHC (31-36) g/dL RDW (10.5-15) % Plt Count (150-450) 10^3/uL MPV (7.4-10.4) fL Neut % (Auto) % Lymph % (Auto) % Cuming % (Auto) % Eos % (Auto) % Baso % (Auto) % Absolute Neuts (auto) (1.5-7.7) 10^3/ul Absolute Lymphs (auto) (1.0-4.8) 10^3/ul Absolute Monos (auto) (0-0.8) 10^3/ul Absolute Eos (auto) (0-0.6) 10^3/ul Absolute Basos (auto) (0-0.2) 10^3/ul Absolute Nucleated RBC 10^3/ul Nucleated RBC % INR (Anticoag Therapy) 1.12 H (0.82-1.09) APTT 29.8 (26.0-36.3) seconds Sodium (135-145) mmol/L Potassium (3.5-5.0) mmol/L Chloride (101-111) mmol/L Carbon Dioxide (22-32) mmol/L Anion Gap (2-11) mmol/L BUN (6-24) mg/dL Creatinine (0.67-1.17) mg/dL Est GFR ( Amer) (>60) Est GFR (Non-Af Amer) (>60) BUN/Creatinine Ratio (8-20) Glucose (70-100) mg/dL Lactic Acid 1.2 (0.5-2.0) mmol/L Calcium (8.6-10.3) mg/dL Magnesium (1.9-2.7) mg/dL Total Bilirubin (0.2-1.0) mg/dL AST (13-39) U/L ALT (7-52) U/L Alkaline Phosphatase (34-104) U/L Total Creatine Kinase (10-223) U/L CK-MB (CK-2) (0.6-6.3) ng/mL Myoglobin (17.4-105.7) ng/mL Troponin I (<0.04) ng/mL B-Natriuretic Peptide (<=100) pg/mL Total Protein (6.4-8.9) g/dL Albumin (3.2-5.2) g/dL Globulin (2-4) g/dL Albumin/Globulin Ratio (1-3) Result Diagrams: 12/17/18 07:45 12/17/18 07:45 Lab Statement: Any lab studies that have been ordered have been reviewed, and results considered in the medical decision making process. Disposition - Course Course Of Treatment: During his course of treatment, the patient is evaluated for left-sided chest pain which he describes as "inflammation." He states with movement, the symptoms worsen, with rest they improved. Denies any improvement with aspirin. He's been taking his regular medications as prescribed. He denies any feeling of arrhythmias or tachycardia. Has a history of sinus bradycardia. On physical examination, patient appears well, nontoxic appearing. Lungs CTA. Heart regular rhythm with a sinus bradycardia rate of 48. He was immediately placed into sub-waiting and an EKG was performed which shows a sinus bradycardia with no ST elevations or changes. Chest x-ray obtained which shows minimal bibasilar sub-segmental atelectasis similar to the prior exam. Patient denies any fevers, sweats, chills. Vital signs are stable on arrival with bradycardia. Labs obtained which show a BNP of 150 and a troponin of 0.00. Symptoms have been present 1 week. He is currently on Mexitil and Cardizem. Physical exam reveals lungs CTA. Slight pain on palpation of the L chest wall. Worse with movement. Bradycardic. Patient states is his normal for him and denies any weakness. LAURITA score is 2. Patient will be discharged home with chest wall pain. - Differential Dx - Cardiopulmonary Differential Diagnoses - Cardiopulmonary: Chest Wall Pain, Other - bradycardic, anxiety, chest pain - Diagnoses Provider Diagnoses: Chest wall pain Discharge - Sign-Out/Discharge Documenting (check all that apply): Patient Departure Patient Received Moderate/Deep Sedation with Procedure: No - Discharge Plan Condition: Stable Disposition: HOME Patient Education Materials: Chest Wall Pain (ED) Referrals: Tray Wasserman MD [Primary Care Provider] - Additional Instructions: Please follow up with your curator of manuscripts as needed Return to the ED for any worsening/changing symptoms - Billing Disposition and Condition Condition: STABLE Disposition: Home
== END 2018-12-17 09:24 | disposition home or self-care (01) ==
LOC: ED 06:41
DX: R07.89 Other chest pain (principal); I25.10 Atherosclerotic heart disease of native coronary artery without angina pectoris; I10 Essential (primary) hypertension; E78.00 Pure hypercholesterolemia, unspecified; Z88.0 Allergy status to penicillin
CPT/HCPCS: 36415; 71046; 80053; 82550; 82553; 83605; 83735; 83874; 83880; 84484; 85025; 85610; 85730; 93005; 99283; A9270-GY

== ENCOUNTER 2019-07-25 14:48 | Emergency (ER) | payer MEDICARE ==
[2019-07-25 15:14] LABS: ABS Lymphocytes 0.7 10^3/ul (1.0-4.8); ABS Monocytes 0.5 10^3/ul (0-0.8); ABS Neutrophils 3.6 10^3/ul (1.5-7.7); Eosinophil % 0.8 %; Hematocrit 42 % (42-52); Hemoglobin 14.7 g/dL (14.0-18.0); Lymphocyte % 14.7 %; Mean Corpuscular HGB Conc 35 g/dL (31-36); Mean Corpuscular Hemoglobin 34 pg (27-31); Mean Corpuscular Volume 97 fL (80-94); Nucleated Red Blood Cells % 0.3; Platelet Count 165 10^3/uL (150-450); Red Blood Count 4.36 10^6 /uL (4.18-5.48); Red Cell Distribution Width 13 % (10-15); White Blood Count 4.9 10^3/uL (3.5-10.8)
[2019-07-25 15:15] LABS: INR 1.15 (0.82-1.09)
--- NOTE | 2019-07-25 15:21 | ED ---
HPI Chest Pain - HPI Summary HPI Summary: Patient is a 74 y/o M presenting to the ED for a chief complaint of non- radiating right anterior chest pain that began around 05:00 on 07/25/19. Patient notes that his chest pain does not radiate, but indicates that he has RUQ abdominal pain that coincides with his chest pain. The chest pain is described as an "inflammation" sensation that lasts for 15-20 minutes before resolving. The chest pain is currently resolved. Patient denies diaphoresis, nausea, vomiting, shortness of breath, bilateral LE pain, or bilateral LE edema. He denies any aggravating or alleviating factors. After his chest pain began, he took 60 mg of isosorbide mononitrate, a beta rosaura, a calcium channel rosaura, and aspirin. Patient denies eating before his chest pain began. He called his business performance specialist at [facility] who recommended the patient be assessed for his chest pain at [facility]. PMHx is significant for PVCs, PACs, and arrhythmia. A history of TN, cholelithiasis, CHF, blood clots, pulmonary embolism, or DVT is denied. PSHx of cardiac surgery or stent placement is denied. Patient states he has had an echocardiogram in the past. He denies taking a diuretic. - History of Current Complaint Chief Complaint: EDChestPainROMI Time Seen by Provider: 07/25/19 15:11 Hx Obtained From: Patient Onset/Duration: Atraumatic, Resolved Timing: Lasting Minutes - 15-20 minutes Initial Severity: Mild Current Severity: Mild Pain Intensity: 0 Pain Scale Used: 0-10 Numeric Chest Pain Location: Right Anterior Chest Pain Radiates: No Character: Other: - "Inflammation" sensation Aggravating Factor(s): Nothing Alleviating Factor(s): Spontaneous Resolution Associated Signs and Symptoms: Positive: Chest Pain, Abdominal Pain - RUQ. Negative: Shortness of Breath, Diaphoresis, Nausea, Vomiting, Edema - Bilateral LE - Allergy/Home Medications Allergies/Adverse Reactions: Allergies Allergy/AdvReac Type Severity Reaction Status Date / Time ciprofloxacin [From Cipro] Allergy Congestion Verified 12/17/18 06:52 monosodium glutamate Allergy Unknown Verified 07/25/19 15:01 Reaction Details Penicillins Allergy Rash Verified 12/17/18 06:52 Home Medications: Home Medications ALPRAZolam TAB* [Xanax TAB*] 0.25 - 0.5 mg PO BID PRN 07/25/19 [History Confirmed 07/25/19] Albuterol Sulfate [Proventil Hfa] 2 puff INH Q4HR PRN 07/25/19 [History Confirmed 07/25/19] Aspirin TAB* [Aspirin 325 MG TAB*] 325 mg PO DAILY 07/25/19 [History Confirmed 07/25/19] Budesonide/Formote 80/4.5(NF) [Symbicort 80/4.5 (NF)] 2 puff INH BID PRN [History Confirmed 07/25/19] Eszopiclone (NF) [Lunesta (NF)] 3 mg PO BEDTIME PRN 07/25/19 [History Confirmed 07/25/19] Fluticasone NASAL SPRAY 50MCG* [Flonase NASAL SPRAY 50MCG*] 2 spray BOTH NARES DAILY 07/25/19 [History Confirmed 07/25/19] HYDROcodone/ACETAMIN 5-325 MG* [[place] 5-325 TAB*] 1 tab PO QID PRN 07/25/19 [ History Confirmed 07/25/19] Isosorbide Mononitrate [Isosorbide Mononitrate ER] 60 mg PO BID 07/25/19 [ History Confirmed 07/25/19] Mexiletine CAP* [Mexitil CAP*] 150 mg PO TID 07/25/19 [History Confirmed ] Mupirocin 2% CREAM* [Bactroban 2% CREAM*] 1 applic TOPICAL TID PRN 07/25/19 [ History Confirmed 07/25/19] Nitroglycerin TAB 0.4 MG* 0.4 mg SL Q5M PRN 07/25/19 [History Confirmed 07/25/19 ] Silodosin(NF) [Rapaflo(NF)] 8 mg PO DAILY 07/25/19 [History Confirmed 07/25/19] Spironolactone/HCTZ 25-25 MG* [Aldactazide 25-25*] 1 tab PO DAILY PRN 07/25/19 [ History Confirmed 07/25/19] methylPREDNISolone TAB* [Medrol TAB*] 2 - 4 mg PO DAILY 07/25/19 [History Confirmed 07/25/19] PMH/Surg Hx/FS Hx/Imm Hx Previously Healthy: Yes Endocrine/Hematology History: Denies: Hx Diabetes Cardiovascular History: Reports: Hx Coronary Artery Disease, Hx Hypercholesterolemia, Hx Hypertension, Other Cardiovascular Problems/Disorders - PVCs, PACs Denies: Hx Congestive Heart Failure, Hx Pacemaker/ICD Respiratory History: Reports: Hx Asthma - YRS.AGO, NOW NOT BAD, Hx Chronic Obstructive Pulmonary Disease (COPD) History: Denies: Hx Renal Disease Musculoskeletal History: Reports: Hx Back Problems - chronic back pain Sensory History: Reports: Hx Contacts or Glasses Denies: Hx Legally Blind, Hx Deafness, Hx Hearing Aid Opthamlomology History: Reports: Hx Contacts or Glasses Denies: Hx Legally Blind EENT History: Denies: Hx Deafness Neurological History: Reports: Other Neuro Impairments/Disorders - PAIN CLINIC PT Psychiatric History: Denies: Hx Panic Disorder - Surgical History Surgical History: Yes Surgery Procedure, Year, and Place: hernia repair 1949 - Immunization History Date of Tetanus Vaccine: unk Date of Influenza Vaccine: none Infectious Disease History: No Infectious Disease History: Denies: Traveled Outside the [place] in Last 30 Days - Family History Known Family History: Positive: Cardiac Disease, Hypertension - Social History Lives: With Family Alcohol Use: Rare Alcohol Amount: 2x month Hx Substance Use: No Substance Use Type: Reports: None Hx Tobacco Use: No Smoking Status (MU): Never Smoked Tobacco Have You Smoked in the Last Year: No Review of Systems Negative: Skin Diaphoresis Positive: Chest Pain - Right anterior Negative: Shortness Of Breath Positive: Abdominal Pain - RUQ. Negative: Vomiting, Nausea Negative: Myalgia - Bilateral LE, Edema - Bilateral LE All Other Systems Reviewed And Are Negative: Yes Physical Exam - Summary Physical Exam Summary: Constitutional: Well-developed, Well-nourished, Alert. (-) Distressed Skin: Warm, Dry HENT: Normocephalic; Atraumatic Eyes: Conjunctiva normal Neck: Musculoskeletal ROM normal neck. (-) JVD, (-) Stridor, (-) Tracheal deviation Cardio: Rhythm regular, rate normal, Heart sounds normal; Intact distal pulses; The pedal pulses are 2+ and symmetric. Radial pulses are 2+ and symmetric. (-) Murmur Pulmonary/Chest wall: Effort normal. (-) Respiratory distress, (-) Wheezes, (-) Rales Abd: Soft, (-) tenderness, (-) Distension, (-) Guarding, (-) Rebound Musculoskeletal: (-) Edema Lymph: (-) Cervical adenopathy Neuro: Alert, Oriented x3 Psych: Mood and affect Normal Triage Information Reviewed: Yes Vital Signs On Initial Exam: Initial Vitals Temp Pulse Resp BP Pulse Ox 98 F 56 16 137/73 96 07/25/19 14:58 07/25/19 14:58 07/25/19 14:58 07/25/19 14:58 07/25/19 14:58 Vital Signs Reviewed: Yes Procedures - Sedation Patient Received Moderate/Deep Sedation with Procedure: No Diagnostics - Vital Signs Vital Signs Temp Pulse Resp BP Pulse Ox 07/25/19 14:58 98 F 56 16 137/73 96 - Laboratory Lab Results: Lab Results 07/25/19 07/25/19 Range/Units 15:00 15:00 WBC 4.9 (3.5-10.8) 10^3/uL RBC 4.36 (4.18-5.48) 10^6 /uL Hgb 14.7 (14.0-18.0) g/dL Hct 42 (42-52) % MCV 97 H (80-94) fL MCH 34 H (27-31) pg MCHC 35 (31-36) g/dL RDW 13 (10-15) % Plt Count 165 (150-450) 10^3/uL MPV 8.0 (7.4-10.4) fL Neut % (Auto) 73.0 % Lymph % (Auto) 14.7 % Sebastian % (Auto) 11.0 % Eos % (Auto) 0.8 % Baso % (Auto) 0.5 % Absolute Neuts (auto) 3.6 (1.5-7.7) 10^3/ul Absolute Lymphs (auto) 0.7 L (1.0-4.8) 10^3/ul Absolute Monos (auto) 0.5 (0-0.8) 10^3/ul Absolute Eos (auto) 0.0 (0-0.6) 10^3/ul Absolute Basos (auto) 0.0 (0-0.2) 10^3/ul Absolute Nucleated RBC 0.0 10^3/ul Nucleated RBC % 0.3 INR (Anticoag Therapy) 1.15 H (0.82-1.09) Result Diagrams: 07/25/19 15:00 07/25/19 15:00 Lab Statement: Any lab studies that have been ordered have been reviewed, and results considered in the medical decision making process. - Ultrasound Abdomen US Ultrasound Interpretation Completed By: Radiologist Summary of Ultrasound Findings: Abdomen US IMPRESSION: 1. DISTENDED GALLBLADDER WITH CHOLELITHIASIS AND SLUDGE WITHOUT SPECIFIC EVIDENCE FOR ACUTE CHOLECYSTITIS. 2. THICKENED FOLD WITHIN THE GALLBLADDER POSSIBLY INCIDENTAL LESS LIKELY A MASS. RECOMMEND AN OUTPATIENT CT OF THE LIVER WITHOUT AND WITH CONTRAST. Reviewed by Dr. Parker. - EKG 14:50 Cardiac Rate: Bradycardia - 54 BPM EKG Rhythm: Sinus Bradycardia ST Segment: Normal Ectopy: None Summary of EKG Findings: EKG at 14:50 shows sinus bradycardia with 54 BPM, RBBB , no ischemic changes., no STEMI. Dr. Parker has reviewed and interpreted this EKG. Chest Pain Course/Dx - Course Course Of Treatment: Patient is a 74 y/o M presenting to the ED for a chief complaint of non-radiating right anterior chest pain that began around 05:00 on 07/25/19. Patient notes that his chest pain does not radiate, but indicates that he has RUQ abdominal pain that coincides with his chest pain. The chest pain is described as an "inflammation" sensation that lasts for 15-20 minutes before resolving. The chest pain is currently resolved. Patient denies diaphoresis, nausea, vomiting, shortness of breath, bilateral LE pain, or bilateral LE edema. He denies any aggravating or alleviating factors. After his chest pain began, he took 60 mg of isosorbide mononitrate, a beta rosaura, a calcium channel rosaura, and aspirin. Patient denies eating before his chest pain began. He called his business performance specialist at [facility] who recommended the patient be assessed for his chest pain at [facility]. PMHx is significant for PVCs, PACs, and arrhythmia. A history of TN, cholelithiasis, CHF, blood clots, pulmonary embolism, or DVT is denied. PSHx of cardiac surgery or stent placement is denied. Patient states he has had an echocardiogram in the past. On exam, unremarkable findings. EKG at 14:50 shows sinus bradycardia with 54 BPM, RBBB, no ischemic changes., no STEMI. Laboratory abnormal findings: MCV 97 , MCH 34, absolute lymphs 0.7, INR 1.15, glucose 131, total protein 6.3. Abdomen US IMPRESSION: 1. DISTENDED GALLBLADDER WITH CHOLELITHIASIS AND SLUDGE WITHOUT SPECIFIC EVIDENCE FOR ACUTE CHOLECYSTITIS. 2. THICKENED FOLD WITHIN THE GALLBLADDER POSSIBLY INCIDENTAL LESS LIKELY A MASS. RECOMMEND AN OUTPATIENT CT OF THE LIVER WITHOUT AND WITH CONTRAST. On medical record review from [facility] from 09/24/17, a cardiac laborer wrecking and salvaging report shows no critical artery stenosis, no stents were placed. Patient will be discharged with a diagnosis of gallstones. Follow up with PCP in 1-3 days. - Diagnoses Provider Diagnoses: Gallstones Discharge ED - Sign-Out/Discharge Documenting (check all that apply): Patient Departure - Discharge - Discharge Plan Condition: Stable Disposition: HOME Patient Education Materials: Gallstones (ED) Referrals: Tray Wasserman MD [Primary Care Provider] - Allyson Gonsalves MD [Medical Doctor] - Additional Instructions: RETURN TO THE EMERGENCY DEPARTMENT FOR CHANGING OR WORSENING SYMPTOMS. Follow up with you primary care provider in 1-3 days. - Attestation Statements Document Initiated by Carie: Yes Documenting Scribe: Taylor Grant Provider For Whom Scribe is Documenting (Include Credential): Roman Parker DO Scribe Attestation: Taylor Pierre scribed for Roman Parker DO on 07/25/19 at [id number]. Status of Scribe Document: Ready
[2019-07-25 15:33] LABS: Troponin I 0.01 ng/mL (<0.03)
[2019-07-25 15:35] LABS: Albumin 3.9 g/dL (3.2-5.2); Albumin/Globulin Ratio 1.6 (1-3); BUN/Creatinine Ratio 18.8 (8-20); Calcium 8.8 mg/dL (8.6-10.3); EGFR African American 77.3 (>60); EGFR Non-African American 63.9 (>60); Globulin 2.4 g/dL (2-4); Potassium 4.3 mmol/L (3.5-5.0); Total Bilirubin 0.5 mg/dL (0.2-1.0); Total Protein 6.3 g/dL (6.4-8.9)
[2019-07-25 17:29] VITALS: BP 134/97
== END 2019-07-25 17:29 | disposition home or self-care (01) ==
LOC: ED 14:48
DX: K80.80 Other cholelithiasis without obstruction (principal); I25.10 Atherosclerotic heart disease of native coronary artery without angina pectoris; E78.00 Pure hypercholesterolemia, unspecified; I10 Essential (primary) hypertension; J44.9 Chronic obstructive pulmonary disease, unspecified; Z79.82 Long term (current) use of aspirin; Z79.899 Other long term (current) drug therapy; Z88.0 Allergy status to penicillin; Z88.1 Allergy status to other antibiotic agents
CPT/HCPCS: 36415; 76705; 80053; 83690; 84484; 85025; 85610; 93005; 99283

== ENCOUNTER 2019-10-12 12:31 | Day surgery (SDC) | payer MEDICARE ==
[~2019-10-12 12:31] MED LIST: Buffered Lidocaine 1% SYRIN* 1 ML/SYRINGE INTRADERM ONE; Lactated Ringers 1000 ML Bag* 1,000 ML IV SCH
[2019-10-12] MEDS ORDERED: Buffered Lidocaine 1% SYRIN* 1 ML/SYRINGE INTRADERM ONE (12:50)
[2019-10-12] MEDS ORDERED: Clindamycin 900 MG/D5W BAG(*) 900 MG/50 ML BAG IVPB ONE (12:50)
[2019-10-12] MEDS ORDERED: Heparin VIAL(*) 5000 UNITS/ML VIAL (FIVE THOUSAND) ONE (12:54)
[2019-10-12] MEDS ORDERED: Bupivacaine 0.25% SDV* 30 ML ONE (14:04)
[2019-10-12] MEDS ORDERED: fentaNYL* 50 MCG/ML 2 ML VIAL (100 MCG VIAL) ONE ×2 (14:34→17:34)
[2019-10-12] MEDS ORDERED: Glycopyrrolate IV* 0.2 MG/ML 1 ML VIAL ONE (14:34)
[2019-10-12] MEDS ORDERED: Propofol* 10 MG/ML 20 ML BTL ONE (14:34)
[2019-10-12] MEDS ORDERED: Rocuronium* 10 MG/ML VIAL ONE ×2 (14:34→15:43)
[2019-10-12] MEDS ORDERED: EPHEDrine (Pressors)* 50 MG/ML VIAL ONE (14:56)
[2019-10-12] MEDS ORDERED: Ondansetron INJ* 2 MG/ML VIAL ONE ×2 (15:53→16:33)
[2019-10-12] MEDS ORDERED: Dexamethasone IV* 4 MG/ML 1 ML (4 MG) ONE (16:05)
[2019-10-12] MEDS ORDERED: Sugammadex * 200 MG/2 ML VIAL IV PUSH ONE (16:06)
[2019-10-12] MEDS ORDERED: Ondansetron INJ* 2 MG/ML VIAL IV PRN (16:14)
[2019-10-12] MEDS ORDERED: Naloxone* 0.4 MG/ML 1 ML VIAL IV PRN (16:14)
[2019-10-12] MEDS ORDERED: Acetaminophen IV 1GM/100ML * 1,000 MG/100 ML VIAL IVPB ONE (16:14)
--- NOTE | 2019-10-12 16:19 | BRIEFOPN ---
Brief Operative/Procedure Note - Operation Details Pre-Op Diagnosis: biliary colic Post-Op Diagnosis: same Procedures: laparoscopic cholecystectomy Surgeon(s)/Proceduralists: Major. Assist: PRIYA Fairbanks Anesthesia: GET. Fluids: 700 ml RL Estimated Blood Loss: 20 ml Findings: as above Specimen(s)/Culture(s) Description: gallbladder Complications: none
[2019-10-12] MEDS ORDERED: Acetaminophen IV 1GM/100ML * 100 ML ONE (16:33)
[2019-10-12] MEDS: fentaNYL* 50 MCG/ML 2 ML VIAL (100 MCG VIAL) IV PRN ×3 (17:35→18:04)
[2019-10-12 17:59] VITALS: BP 148/75
[2019-10-12] MEDS ORDERED: oxyCODONE/Acetamin 5/325 MG* TAB ONE (18:11)
--- NOTE | 2019-10-12 21:34 | OP ---
DATE OF OPERATION: 10/12/19 [facility] DATE OF : 43 SERVICE: General Surgery. ATTENDING SURGEON: Allyson Gonsalves MD [employer] DEVELOPER: PRIYA Cuellar ANESTHESIOLOGIST: Dr. Sorin Estevez. PRE-OP DIAGNOSIS: Biliary colic. POST-OP DIAGNOSIS: Biliary colic. OPERATIVE PROCEDURE: Laparoscopic cholecystectomy. ESTIMATED BLOOD LOSS: Approximately 20 cc. SPECIMEN: Gallbladder. INDICATIONS FOR SURGERY: Mr. Hobbs is a very pleasant 74-year-old gentleman with a history of biliary colic. He has had several episodes of symptomatic biliary colic; therefore, he wished to undergo an elective laparoscopic cholecystectomy. He understood that the risks included, but were not limited to bleeding, infection, injury to nearby structures such as the common bile duct and other structures. He understood the alternatives and benefits and he wished to proceed. DESCRIPTION OF PROCEDURE: The patient was brought back to the operating room and placed on the operating table in supine position. Sequential compression devices were placed on the bilateral lower extremities for DVT prophylaxis. Antibiotics with clindamycin was administered because the patient has an allergy to PENICILLIN. General endotracheal anesthesia was induced. The left arm was tucked and abdomen was prepped and draped in a normal sterile fashion. Prior to beginning the surgery, a time-out was performed verifying the patient' s name, date of , and the procedure to be performed. Next, a 0.25% Marcaine was infiltrated into the left upper quadrant at Stephens's point. A small incision was made and the Veress needle was advanced to the abdominal wall until it was intraabdominal. A saline drop test was performed which was positive, indicating that we were intraabdominal; therefore, insufflation was obtained to 15 mmHg. Then, local anesthesia was administered to the supraumbilical fold. A small incision was made and a 5-mm Optiview trocar was used to enter the abdomen. Once the abdomen was entered, general inspection of the abdominal cavity showed that there was no injury that was made upon entry with Optiview trocar or with the Veress needle; therefore, the Veress needle was then removed. Next, after administering local anesthesia, the remaining 3 trocars were placed-- a 12-mm trocar was placed just to the right of the falciform and two 5-mm trocars were placed, one at the right mid clavicular line below the costal margin and one in the right lateral mid abdomen. After this, the patient was placed in reverse Trendelenburg with the right side up. His gallbladder was noted to be very distended and filled with a bile and it could not be grasped without aspirating it. Therefore, an aspirating needle was placed within it and 50 cc of bilious fluid was then removed. After this, the fundus was grasped and elevated over the liver bed. There was a lot of surrounding fatty tissue around the infundibulum of the gallbladder that was taken down using electrocautery. After this, the infundibulum was able to be grasped and retracted anteriorly and laterally. The peritoneum on either side of the gallbladder was divided and then the cystic duct was then skeletonized. There was no clear cystic artery and the entire space between cystic duct and the liver bed was cleared out of all the tissue, but again no clear cystic artery was identified. Therefore, once the critical view was obtained and pictures were taken, the cystic duct was clipped once distally and twice proximally and then divided. After this, the gallbladder was then removed from the liver bed using electrocautery and placed into an Endo Catch bag and removed from the abdomen as a specimen. There was punctate bleeding on the liver bed that was cauterized and then the right upper quadrant was irrigated copiously with normal saline. After this was done and hemostasis was obtained, attention was turned towards closure. The fascia of the 12 mm trocar site was closed using 0 Vicryl suture. After this was done, desufflation was then obtained and all the trocars were removed under direct visualization. The skin was closed using interrupted 4-0 Monocryl suture. Sterile dressing was then placed. The patient's anesthesia was reversed and he was taken to the PACU in stable condition. At the end of the case, all counts were correct and I was present during the entirety of the case. [id number]/[facility] #: [id number] LINDSAY
== END 2019-10-12 19:30 | disposition home or self-care (01) ==
LOC: OR 12:31
PROVIDERS: ATTEND Surgery
DX: K80.10 Calculus of gallbladder with chronic cholecystitis without obstruction (principal); I10 Essential (primary) hypertension; I25.10 Atherosclerotic heart disease of native coronary artery without angina pectoris; J45.909 Unspecified asthma, uncomplicated; E78.5 Hyperlipidemia, unspecified; R65.10 Systemic inflammatory response syndrome (SIRS) of non-infectious origin without acute organ dysfunction; I49.9 Cardiac arrhythmia, unspecified; Z88.0 Allergy status to penicillin; Z88.1 Allergy status to other antibiotic agents; R00.2 Palpitations
CPT/HCPCS: 88304; A9270-GY; J1100; J1644; J2405; J2704; J3010; J3490

== ENCOUNTER 2019-10-15 09:30 | Emergency (ER) | payer MEDICARE ==
--- OUTSIDE RECORDS SUMMARY | 2019-10-15 09:44 | XMS REPORT | Continuity of Care Document ---
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 Onset: 11/18/2012 Benign essential hypertension Kaushik Sanchez M.D. Onset: 11/18/2012 Palpitations Kaushik Sanchez M.D. Onset: 11/18/2012 Electrocardiogram abnormal Kaushik Sanchez M.D. Onset: 11/18/2012 Social History Type Date Description Comments Sex Unknown ETOH Use Rarely consumes alcohol Recreational Drug Use Denies Drug Use Tobacco Use Start: Unknown Patient has never smoked Smoking Status Reviewed: 10/02/19 Patient has never smoked Exercise Type/Frequency walk, stretching Exercise Type/Frequency Exercises regularly Allergies, Adverse Reactions, Alerts Active Allergies Reaction Severity Comments Date PCN skin bubbles 07/22/2005 Cipro skin reactions 07/22/2005 Medications Active Medications SIG Qnty Indications Ordering Provider Date Nitrostat one sl q5min up 25tabs Qutaybeh SJoey 01/15/2014 0.4mg Tablets to 3 doses as Xander Sanchez Sub needed Isosorbide 1 tab 2-3 times 135tabs Qutaybeh S. 05/22/2010 Mononitrate ER a day by mouth Xander Sanchez 60mg Tablets ER 24HR Lunesta one half tab @ 30tabs Unknown 3mg Tablets hs by mouth Aspirin 81 1 by mouth every Unknown 81mg Tablets day DR Ibuprofen 2 by mouth every Unknown 200mg Tablets 6h as needed Multivitamin Adult 1 by mouth every Unknown day Tablets Vitamin C 1 by mouth every Unknown 500mg day Capsules Silodosin Take One Capsule Unknown 8mg Capsules By Mouth Every Day Symbicort Inhale Two Puffs Unknown 80-4.5mcg/Act By Mouth Twice A Aerosol Day as Needed Atorvastatin Calcium Take 1 Tablet By Unknown Mouth Every 80mg Tablets Evening Diltiazem HCL Take 1 Tablet By Unknown 30mg Mouth Three Tablets Times A Day Bisoprolol Fumarate Take One Tablet Unknown 5mg By Mouth Three Tablets Times A Day Tylenol PM as needed at Unknown Tablets night Immunizations Description No Information Available Vital Signs Date Vital Result Comment 10/02/2019 1:08pm Weight 177.00 lb Heart Rate 64 /min BP Systolic 120 mmHg BP Diastolic 62 mmHg Respiratory Rate 16 /min Body Temperature 96.9 F 08/08/2019 11:23am Heart Rate 48 /min BP Systolic Sitting 120 mmHg BP Diastolic Sitting 76 mmHg Respiratory Rate 14 /min Body Temperature 98.1 F Results Description No Information Available Procedures Description No Information Available Medical Devices Description No Information Available Encounters Type Date Location Provider Dx Diagnosis Office Visit 08/08/2019 Surgical Allyson Gonsalves MD K80.20 [facility] gallbladder w/o cholecystitis w/o obstruction Office Visit 08/02/2019 Surgical Allyson Gonsalves MD K80.20 [facility] gallbladder w/o cholecystitis w/o obstruction Assessments Date Code Description Provider 10/02/2019 K80.20 [facility] gallbladder without Shreyas Castaneda PA-C cholecystitis without obstruction 10/02/2019 Z01.818 Encounter for other preprocedural PRIYA Mckeon examination 08/30/2019 K80.20 [facility] of gallbladder without Allyson Gonsalves MD cholecystitis without obstruction 08/08/2019 K80.20 [facility] of gallbladder without Allyson Gonsalves MD cholecystitis without obstruction 08/02/2019 K80.20 [facility]culus of gallbladder without Allyson Gonsalves MD cholecystitis without obstruction Plan of Treatment Future Appointment(s):10/12/2019 11:30 am - PRIYA [place] at [facility]10/12/2019 11:30 am - Allyson Gonsalves MD at [facility]10/02/2019 - PRIYA Mckeon-CK80.20 Calculus of gallbladder without cholecystitis without [id number] Encounter for other preprocedural examination Functional Status Description No Information Available Mental Status Description No Information Available Referrals Description No Information Available
--- OUTSIDE RECORDS SUMMARY | 2019-10-15 09:44 | XMS REPORT | Continuity of Care Document ---
:1945 External Reference #:[id number] Author Name Chuyita Barton NP Address [address] [place] [address] Problems Active Problems Provider Date Allergic rhinitis Tray Wasserman M.D. Onset: 11/15/2006 Asthma without status asthmaticus Tray Wasserman M.D. Onset: 11/15/2006 Benign essential hypertension Tray Wasserman M.D. Onset: 01/21/2010 Hyperlipidemia Tray Wasserman M.D. Onset: 01/21/2010 Low back pain Tray Wasserman M.D. Onset: 06/09/2011 Arthralgia of the pelvic region and thigh Tray Wasserman M.D. Onset: 2010 Otolith disease Tray Wasserman M.D. Onset: 12/06/2012 Coronary arteriosclerosis Tray Wasserman M.D. Onset: 12/06/2012 Insomnia Tray Wasserman M.D. Onset: 12/06/2012 Benign prostatic hypertrophy without outflow Tray Wasserman M.D. Onset: obstruction Acute bronchitis Tray Wasserman M.D. Onset: 11/25/2013 Acute upper respiratory infection Tray Wasserman M.D. Onset: 11/25/2013 Benign neoplasm of skin of trunk, excluding Tray Wasserman M.D. Onset: 01/11 scrotum Persistent insomnia Tray Wasserman M.D. Onset: 05/07/2016 Pleurisy without effusion or active Tray Wasserman M.D. Onset: 07/30/2016 tuberculosis Conduction disorder of the heart Tray Wasserman M.D. Onset: 07/30/2016 Neoplasm of uncertain behavior of skin Tray Wasserman M.D. Onset: 09/03/2016 Pain in right lower limb Tray Wasserman M.D. Onset: 05/04/2017 Uncomplicated moderate persistent asthma Tray Wasserman M.D. Onset: 2016 Generalized anxiety disorder Tray Wasserman M.D. Onset: 07/22/2017 Right lower quadrant pain Tray Wasserman M.D. Onset: 03/14/2018 Digestive symptom Tray Wasserman M.D. Onset: 03/14/2018 Spontaneous ecchymosis Tray Wasserman M.D. Onset: 03/14/2018 Infection of tooth Tray Wasserman M.D. Onset: 04/04/2019 Social History Type Date Description Comments Sex Unknown Tobacco Use Start: Unknown Never Smoked Cigarettes ETOH Use Occasional Tobacco Use Start: Unknown Patient has never smoked Smoking Status Reviewed: 09/05/19 Patient has never smoked Allergies, Adverse Reactions, Alerts Active Allergies Reaction Severity Comments Date Penicillin Cipro Low B/P Was Hospitalized 12/29/1999 MSG 05/22/2005 Bactrim Contact dermatitis 12/10/2014 Medications Active Medications SIG Qnty Indications Ordering Date Provider Hydrocodone-Acetaminophe 1 by mouth four 60tabs Tray Moeller 07/20/2019 n times a day as Joshua WassermanDJoey 5-325mg Tablets needed pain Mupirocin apply topically 22gm L98.9 Tray Moeller 07/20/2019 2% Ointment three times a Lisy MJoeyDJoey day to affected area(s) Silodosin 1 by mouth 90caps Tray TJoey 01/13/2019 8mg Capsules every day for Midura, M.D. prostate Spironolactone/Hydrochlo 1 by mouth 90tabs Tray TJoey 09/16/2018 rothiazide every day as Lisy M.DJoey 25-25mg Tablets Needed For Fluid Retention Methylprednisolone Take 1/2 To 1 30tabs Tray Moeller 03/14/2018 4mg Tablet By Mouth Xander Wasserman Tablets Once Daily Symbicort Inhale Two 10.2units Tray Moeller 07/24/2017 80-4.5mcg/Act Puffs By Mouth Xander Wasserman Aerosol Twice A Day as Needed Diltiazem HCL 1 three times a 270tabs Tray TJoey 07/22/2017 30mg Tablets day Xander Wasserman Proventil HFA inhale 2 puffs 6.7units Chuyita Donis 05/27/2017 108(90Base) by mouth every Barton, PRODUCTION TECHNOLOGIST mcg/Act Aerosol 4 hours as needed Nitrostat place 1 tablet 25tabs Tray Moeller 11/19/2015 0.4mg Tablets Sub under the Xander Wasserman tongue as needed for chest pain may repeat in 15 minutes up to a total of 3 times Flonase [place] 2 Sprays 16units Tray Moeller 02/02/2011 50mcg/Act Suspension In Each Nostril Xander Wasserman Once A Day Lunesta Take One Tablet 30tabs Tray Moeller 02/18/2005 3mg Tablets By Mouth AT Xander Wasserman Bedtime as Needed For Sleep Maximum Daily Dose = One Tablet Lipitor 1 by mouth 60tabs Tray Sunni 80mg Tablets every day Xander Wasserman Bisoprolol Fumarate 1 by mouth 270tabs Chuyita Donis 5mg three times a EZ Barton Tablets day Aspirin 1 by mouth Unknown 325mg Tablets every day Mexiletine HCL tid Unknown 150mg Capsules Isosorbide Mononitrate 1 by mouth 180tabs Tray Moeller ER twice a day Xander Wasserman 60mg Tablets ER 24HR History Medications Clindamycin HCL 1 by mouth three 120caps Tray TJoey Wasserman, 04/04/2019 - 300mg times a day M.D. 07/19/2019 Capsules Silodosin 1 by mouth every 60caps Chuyita Donis 04/04/2019 - 8mg Capsules day for prostate EZ Barton 07/19/2019 Immunizations CPT Code Status Date Vaccine Lot # [id number] Given 07/29/2019 High-Dose, Influenza Virus Vacccine-fluzone 65 and [id number] older [id number] Given 02/22/2017 Tdap Tetanus, W Pertussis [id number] Given 08/04/2013 High-Dose, Influenza Virus Vacccine-fluzone 65 and older [id number] Given 08/04/2012 Split Influenza Medicare: Fluvirin [id number] Given 08/04/2012 DO Not Use Split Influenza Virus Vaccine [id number] Given 05/25/2003 DO Not Use Split Influenza Virus Vaccine [id number] Given 05/25/2003 DO Not Use Split Influenza Virus Vaccine Vital Signs Date Vital Result Comment 09/05/2019 3:15pm BP Systolic 128 mmHg BP Diastolic 82 mmHg Heart Rate 54 /min Body Temperature 98.2 F Respiratory Rate 18 /min Height 69.75 inches 5'9.75" Weight 189.00 lb BMI (Body Mass Index) 27.3 kg/m2 07/29/2019 11:08am BP Systolic 134 mmHg BP Diastolic 60 mmHg Heart Rate 60 /min Body Temperature 97.5 F Respiratory Rate 16 /min Height 69.75 inches 5'9.75" Weight 190.50 lb BMI (Body Mass Index) 27.5 kg/m2 Results Test Acquired Date Facility Test Result H/L Range Note Inr/Protime 07/25/2019 [facility] Inr 1.15 High 0.82-1.09 1 CBC Auto Diff 07/25/2019 [facility] White Blood 4.9 10^3/uL Normal 3.5-10.8 Count Red Blood Count 4.36 10^6/uL Normal 4.18-5.48 Hemoglobin 14.7 g/dL Normal 14.0-18.0 Hematocrit 42 % Normal 42-52 Mean Corpuscular Volume 97 fL High 80-94 Mean Corpuscular Hemoglobin 34 pg High 27-31 Mean Corpuscular HGB Conc 35 g/dL Normal 31-36 Red Cell Distribution Width 13 % Normal 10-15 Platelet Count 165 10^3/uL Normal 150-450 Mean Platelet Volume 8.0 fL Normal 7.4-10.4 Abs Neutrophils 3.6 10^3/uL Normal 1.5-7.7 Abs Lymphocytes 0.7 10^3/uL Low 1.0-4.8 Abs Monocytes 0.5 10^3/uL Normal 0-0.8 Abs Eosinophils 0.0 10^3/uL Normal 0-0.6 Abs Basophils 0.0 10^3/uL Normal 0-0.2 Abs Nucleated RBC 0.0 10^3/uL Granulocyte % 73.0 % Lymphocyte % 14.7 % Monocyte % 11.0 % Eosinophil % 0.8 % Basophil % 0.5 % Nucleated Red Blood Cells % 0.3 Laboratory test finding 07/25/2019 [facility] Troponin-I (TnI) 0.01 ng/mL < 0.03 2 Comp Metabolic Panel 07/25/2019 [facility] Sodium 139 mmol/L Normal 135-145 Potassium 4.3 mmol/L Normal 3.5-5.0 Chloride 106 mmol/L Normal 101-111 Co2 Carbon Dioxide 28 mmol/L Normal 22-32 Anion Gap 5 mmol/L Normal 2-11 Glucose 131 mg/dL High 70-100 Blood Urea Nitrogen 21 mg/dL Normal 6-24 Creatinine 1.12 mg/dL Normal 0.67-1.17 BUN/Creatinine Ratio 18.8 Normal 8-20 Calcium 8.8 mg/dL Normal 8.6-10.3 Total Protein 6.3 g/dL Low 6.4-8.9 Albumin 3.9 g/dL Normal 3.2-5.2 Globulin 2.4 g/dL Normal 2-4 Albumin/Globulin Ratio 1.6 Normal 1-3 Total Bilirubin 0.50 mg/dL Normal 0.2-1.0 Alkaline Phosphatase 99 U/L Normal 34-104 Alt 25 U/L Normal 7-52 Ast 22 U/L Normal 13-39 Egfr Non- 63.9 >60 Egfr 77.3 >60 3 Laboratory test 07/25/2019 [facility] Lipase 25 U/L Normal 11.0-82.0 finding Laboratory test 03/17/2019 [facility] Cancelled - Not Applicable [address] [place] [address] NOTE> [phone] 1 Standard intensity warfarin therapeutic range: 2.0-3.0 High intensity warfarin therapeutic range: 2.5-3.5 2 Troponin-I testing on Plasma Separator Tubes (PST) has a known false positive rate of 0.20-0.40%. All positive troponins reflex immediately to secondary confirmatory testing. Using the [employer] DxI 800 Access Immunoassay systems, the 99th percentile upper reference limit was demonstrated to be < 0.03 ng/mL. 3 Because ethnic data is not always readily available, this report includes an eGFR for both -Americans and non- Americans. The National Kidney Disease Education Program (NKDEP) does not endorse the use of the MDRD equation for patients that are not between the ages of 18 and 70, are , have extremes of body size, muscle mass, or nutritional status, or are non- or non-. According to the National Kidney Foundation, irrespective of diagnosis, the stage of the disease is based on the level of kidney function: Stage Description GFR(mL/min/1.73 m(2)) 1 Kidney damage with normal or decreased GFR 90 2 Kidney damage with mild decrease in GFR 60-89 3 Moderate decrease in GFR 30-59 4 Severe decrease in GFR 15-29 5 Kidney failure <15 (or dialysis) 4 Cancelled - Order This order has because it has exceeded 365 days from the initial order. Please contact the laboratory to reorder this test if clinically indicated. Test Type: Composite algorithmic analysis of stool DNA-biomarkers with hemoglobin immunoassay. Quantitative values of individual biomarkers are not reportable and are not associated with individual biomarker result reference ranges. Precautions and Limitations: Cologuard is intended for colorectal cancer screening of adults of either sex, 50 years or older, who are at typical average -risk for colorectal cancer. A negative Cologuard test result does not guarantee the absence of colorectal cancer or advanced adenoma (pre-cancer). Patients with a negative Cologuard test result should be advised to continue participating in a colorec estefania cancer screening program. Cologuard may produce a positive result, even though a colonoscopy may not find colorectal cancer or precancerous polyps. The performance of Cologuard has been established in a cross sectional study (i.e., single point in time). Performance has not been evaluated in adults who have been previously tested with Cologuard or in patients less than 50 years of age. Cologuard h as been approved for use by the [place]. FDA. Cologuard performance data in a 10, 000 patient pivotal study using colonoscopy as the reference method can be accessed at the following location: www.[employer]/results. Additional description of the Cologuard test process, warnings and precautions can be found at www.cologuardtest.com. Rx Only. Procedures Description No Information Available Medical Devices Description No Information Available Encounters Type Date Location Provider Dx Diagnosis Office Visit 07/29/2019 Main Office Tray Wasserman, K80.80 Other cholelithiasis 11:20a M.D. without obstruction I25.10 Athscl heart disease of [place] coronary artery w/o ang pctrs Z23 Encounter for immunization Office Visit 07/20/2019 3:00p [facility] Tray Moeller L98.9 Disorder of the Xander Wasserman skin and subcutaneous tissue, unspecified M54.5 Low back pain Office Visit 04/04/2019 9:20a Main Office Tray Wasserman, J45.40 Moderate persistent M.D. asthma, uncomplicated I25.10 Athscl heart disease of [place] coronary artery w/o ang pctrs K04.7 Periapical abscess without sinus Assessments Date Code Description Provider 09/05/2019 M70.21 Olecranon bursitis, right elbow Chuyita Barton, EZ 09/05/2019 Z23 Encounter for immunization Chuyita Barton, EZ 07/29/2019 K80.80 Other cholelithiasis without obstruction Tray Wasserman M.D. 07/29/2019 I25.10 Atherosclerotic heart disease of [place] Tray Wasserman M.D. coronary artery with 07/29/2019 Z23 Encounter for immunization Tray Wasserman M.D. 07/20/2019 L98.9 Disorder of the skin and subcutaneous Tray Wasserman M.D. tissue, unspecified 07/20/2019 M54.5 Low back pain Tray Wasserman M.D. 04/04/2019 J45.40 Moderate persistent asthma, uncomplicated Tray Wasserman M.D. 04/04/2019 I25.10 Atherosclerotic heart disease of [place] Tray Wasserman M.D. coronary artery with 04/04/2019 K04.7 Infection of tooth Tray Wasserman M.D. Plan of Treatment 09/05/2019 - Chuyita Barton, EZM70.21 Olecranon bursitis, right elbowComments:BURSITIS OVERVIEWBursitis is an inflammation or irritation of the bursae (plural of "bursa"). The bursae are fluid-filled sacs around joints and tendons, which decrease friction from movement and provide a cushion between bones, tendons, muscles, and skin.Bursitis can be rapid in onset (acute) or build up slowly over time (chronic). Acute bursitis is often the result of an injury, infection, or inflammatory condition. Chronic bursitis often follows a long period of repetitive use, motion, or compression. Bursitis can involve almost any joint in the body, although some areas are more commonly affected than others.BURSITIS CAUSESCauses of bursitis include:?Injury, such as from a fall or hit; this usually causes bleeding into a bursa. People who take anticoagulant medications (blood thinners) to prevent or treat blood clots are at higher risk for this condition.?Infection resulting from bacteria entering the body through a cut or scrape in the skin.?Gout or other crystal diseases.? Certain types ofarthritis, like rheumatoid arthritis or psoriatic arthritis.? Prolonged pressure, which can result from kneeling, sitting, or leaning on a particular joint for a long period.?Strain or overuse from repeating the same motion many times?Joint stress from an abnormal gait; for example, walking unevenly because one leg is shorter than the otherBURSITIS SYMPTOMSCommon symptoms of bursitis include pain and/or swelling at the affected site. Visible swelling is more common in superficial bursae that are closer to the surface of the skin, such as those around the elbows, kneecaps, and heels. Swelling is lesscommonly a feature of bursitis that affects deep structures, such as the bursae of the shoulders, hips, and inner knees.In acute bursitis, there are often features of inflammation at the bursa. Pain kimberlee universal feature, and typically localizes directly over the affected bursa; active motion (when the person moves or bends the joint) also causes pain if the motion stretches the affected bursa. Acute bursitis of a superficial bursa is often accompanied by redness, warmth, and swelling.People with chronic bursitis may have swelling, but usually only if a superficial bursa is affected. Pain is present with chronic bursitis of any location, but the intensity of pain can vary. These patients may alsohave limited range of motion because pain from the bursitis restricts motion of the nearby joint andsurrounding muscles.Bursitis caused by an infection is called "septic bursitis." Symptoms may include pain, swelling, warmth, and redness around the affected joint. Fever may also be present. This is apotentially serious condition since infection can spread to nearby joints, bone, or the blood. Bursitis caused by gout is not infection-related but can mimic septic bursitis in the intensity of inflammation.Specific symptoms of bursitis vary depending on the area that is affected. (See 'Types of bursitis' below.)BURSITIS DIAGNOSISDiagnosing bursitis involves a physical examination, a review of your symptoms, and sometimes tests.If your health care provider suspects infection or crystal disease (for example, gout), they may use a syringe and needle to remove a sample of fluid from the affected bursa. This is called "aspiration." The fluid can then be examined under a microscope for crystals, bacteria, and white blood cells.Imaging such as X-ray, magnetic resonance imaging (MRI), or ultrasound is not usually needed to diagnose bursitis. However, it can help in some situations, such as when other problems need to be ruled out (for example, a tear in the cartilage or ligament). It can also be useful if your doctor needs to remove fluid from a bursa near other areas that could be injured, such as nerves or blood vessels. Imaging can allow the doctor to visualize where the needle is going.TYPES OF BURSITISBursitis can affect many different areas of the body. The exact symptoms and preferred treatments depend on the location as well as the cause. The following examples cover the most common types of bursitis, but are not inclusive of all types.Shoulder (subacromial bursitis) ?? Shoulder bursitis causes pain in the shoulder and often extends to the upper arm (figure 1). Pain is often present at rest but increases with movement of the arm, especially with lifting the arms above the head; it also often interrupts sleep. It can be difficult to differentiate shoulder bursitis from other issues suchas a rotator cuff tendinitis, rotator cuff tear, shoulder arthritis, or labral tear.Upper back ( scapulothoracic bursitis) ?? Upper back bursitis affects the space between the scapula (shoulder blade) and ribs and can cause pain or a popping sensation. Reaching the arms overhead or doing pushups can make pain worse.Elbow ( olecranon bursitis) ?? Elbow bursitis usually causes a visible swelling at the tip of the elbow, like a golf ball. It can result from injury (bleeding into the bursa), infection, crystals (gout), or rheumatoid arthritis. It usually causes pain when the elbow is flexed, but not extended. The elbow often extends fully without discomfort.Pelvis (ischial bursitis) ?? Pelvic bursitis has also been referred to as "michael's bottom" or "tailor's bottom" since it is often caused by prolonged sitting on hard surfaces. It causes pain in the lower buttocks that is aggravated by sitting (figure 2); pain may disappear when the person stands.HipGreater trochanteric pain syndrome (formerly called trochanteric bursitis) ?? The greater trochanteric bursa is located in the upper outer part of the femur (thigh bone) (figure 2). Bursitis in this area is usually associated with inflammation of nearby tendons and can cause pain while lying or sleeping on the affected side of the body. Because the primary problem may be more an irritation of the tendons in the area, the term "greater trochanteric pain syndrome" has replaced the former term of "trochanteric bursitis." People with greater trochanteric pain syndrome also tend to have pain when extending the leg to walk, but not while standing still. Symptoms can be aggravated by an abnormal gait, due to uneven stress on the hips. There are many contributing factors, including chronic back pain, contralateral knee pain (knee pain on the opposite side of the body from the bursitis), different leg lengths, and being overweight.Iliopsoas bursitis ??The psoas muscle runs from the spine to the femur and is used to flex the hip. The iliopsoas bursa abuts the psoas muscle deep in the front of the hip. This type of bursitis causes pain in the groin area, particularly when the hip is flexed against resistance or when climbing stairs. It can result from arthritis in the area, overuse (for example, excessive running), or injury. Because symptoms are similar to those of other hip problems (for example, problems with the bone or cartilage), imaging tests are often required to confirm the diagnosis. Infection in the psoas muscle (psoas abscess) can havesimilar symptoms, although these are usually more severe.KneePrepatellar and infrapatellar bursitis ?? The prepatellar bursa is located in front of the patella (kneecap) (figure 3); the infrapatellar bursa is below this. Bursitis in these areas can result from recurrent injury to the knee and is oftenseen in people who frequently kneel. Prepatellar bursitis has been referred to as "photogrammetric tech's knee"or "nun's knee." It can also happen as a result of infection, gout, or rheumatoid arthritis. Swelling occurs within the bursa, not in the knee joint itself. People with prepatellar and infrapatellar bursitis usually feel more comfortable lying down with the knee extended, while people with swelling within the true knee joint tend to feel better lying down with the knee partially bent.MCL bursitis ?? The medial collateral ligament (MCL) is located on the inner side of the knee, and connects the femur(thigh bone) to the tibia (conner bone) (figure 4). Bursitis in this area can cause pain and tenderness, but doesn't usually involve swelling. It must be differentiated from an injury or tear to the MCL or meniscus (the cartilage in the knee).Pes anserinus pain syndrome ?? The pes anserine bursa is located about two inches below the top of the tibia (conner bone), on the inner side of the knee. Because the primary problem may be more an irritation of the tendons in the area, the term "pes anserinus painsyndrome" has replaced the former term of "pes anserine bursitis." This syndrome causes pain on the inner side of the knee, which tends to come on abruptly, often during the night. It is more common inpeople with osteoarthritis of the knee, obesity, and/or with genu valgum (when the knees point inward, also called knock-knee deformity) .Heel (retrocalcaneal bursitis) ?? The retrocalcaneal bursa is between the heel bone and the Achilles tendon, which connects the heel to the calf muscle. It normally serves as a cushion to absorb impact when walking. Retrocalcaneal bursitis can cause pain and swelling in the area. It can be easily confused with Achilles tendinitis (inflammation of the Achilles tendon).BURSITIS TREATMENTBursitis treatment focuses on relieving inflammation and pain, treating infection (if present), maintaining range of motion, and preventing complications and future recurrence.Pain-relief medication ?? In most cases, nonsteroidal antiinflammatory drugs (NSAIDs) can help relieve pain and inflammation. NSAIDs include ibuprofen (sample brand names: Advil, Motrin) and naproxen (samplebrand name: Aleve); other NSAIDs, as well as higher doses, are also available by prescription. Topical NSAIDs (for example, diclofenac gel) may be an appropriate option for patients who cannot tolerateoral NSAIDs.NSAIDs are not appropriate for everyone. For example, people who take anticoagulants ( blood thinners) or have a history of kidney disease, heart disease, high blood pressure, or bleeding stomach ulcers should talk with their health care provider about whether they can safely take NSAIDs. (See "Patient education: Nonsteroidal antiinflammatory drugs (NSAIDs) (Beyond the Basics)".)Steroid injections ?? A glucocorticoid (steroid) injection, which may also include an anesthetic (pain reliever), can also help with pain and inflammation from bursitis. Steroid injection is indicated for some types of bursitis but not others. This is more often used when the affected area is deep under the skin( see 'Shoulder (subacromial bursitis)' above and 'Greater trochanteric pain syndrome (formerly called trochanteric bursitis)' above and 'MCL bursitis' above and 'Pes anserinus pain syndrome' above). Itis not usually helpful (and can even be harmful) for more superficial types of bursitis, for example, in the olecranon bursa of the elbow, prepatellar bursa of the knee, or retrocalcaneal bursa of the heel. Steroid injections only provide short-term pain relief, and the effects start to wear off afterseveral weeks.Protecting the joints ?? It is important to protect the affected joints in order to rest the affected area and help the bursae to heal. Bursal protection can also prevent the bursitis from getting worse or recurring. Examples of joint protection include:?Avoiding or modifying activities that cause pain?The use of pads or cushions for people who have to kneel or sit frequently?Modifying footwear to reduce pressure on the back of the heel (eg, cutting a "V"-shaped groove into the back ofa shoe; using a pad inside the shoe to lift the heel)? Custom-fitted devices worn over the elbows to protect them and prevent fluid from building up againOther measures ?? Ice can help relieve pain, particularly for bursitis affecting superficial areas like the elbow, kneecap, and heel. Heat (eg, a heating pad) may be more effective for deeper forms of bursitis, such as the hip, shoulder, or inner knee.In many cases, physical therapy can help treat symptoms of bursitis and prevent future recurrence. The optimal exercises depend on the type and severity of bursitis, but may involve stretching, strengthening, or working to improve (and maintain) range of motion.Rarely, surgery is required to remove all or part of the affected bursa.Treating infection ?? Septic bursitis is a potentially very serious condition that needs to be addressed quickly. It is treated with antibiotics and (when possible) by draining any infected fluid from the bursa. The choice of which antibiotic to use, and for how long, is based on the type and severity of infection. For mild cases, a few weeks of oral antibiotics may beenough; for more severe infection, intravenous (IV) antibiotics (given in the hospital) may be required.When it is possible to drain infected fluid, this is done using a needle and syringe. This happens in a doctor's office, until the infection has resolved, which can mean repeating the procedure several times over multiple days. Rarely, surgery is indicated in cases where drainage and antibiotics cannot cure the infection.Z23 Encounter for immunizationComments:Prevnar administered return next year for the PCV 23AllComments:Medication Management Patient Understands medications he 's taking? Yes No Are there Barriers to Adherence? Yes No Has the patient been asked about herbal supplements and therapies, andOTC meds? Yes No Care Plan1. Patient has been queried about patient's goals/preferences and functional/ lifestyle goals at relevant visits. If relevant, describe: na2. Treatment goals as explained to the patient: above3. Are there barriers to meeting treatment goals? Yes No If Yes, please describe: comorbid conditions, disease process, polypharmacy 4. Self-Management goals as described to the patient: Yes NoAs always, we strongly encourage a healthy diet and making physical activity a part of your every day life. If you have questions about how or where to start, please contact the office. Goals 09/05/2019 - Chuyita Barton, EZM70.21 Olecranon bursitis, right elbowNeoprene sleeve if worsening or not improving in 1-2 weeks - ortho referral for aspiration/cortisoneinjection patient instructed to call back if condition fails to improve or worsens. Functional Status Description No Information Available Mental Status Description No Information Available Referrals Refer to Reason for Referral Status Appt Date Allyson Gonsalves MD Consult and treat. Office note, labs and Created demographics faxed. [facility] [address] [place] [address] [address] [facility] [id number] [phone]
--- NOTE | 2019-10-15 10:01 | ED ---
GI/ HPI - HPI Summary HPI Summary: This patient is a 74 year old male presenting to [facility] with a series of GI and cardiac problems. He setates he had recent gallbladder surgery and has had abdominal pain due to recent surgery on gallbladder and constipation. He reports nausea and vomiting. He states he has had intermittent chest pain that he attributes to angina and PACs/PVCs. He states he did have a recent BM but still has the sensation that he needs to have one without being able to do one. He states his bowel movement relieved the abdominal pain, which he rated 8/10 in pain severity prior. - History of Current Complaint Chief Complaint: EDAbdPain Time Seen by Provider: 10/15/19 09:44 Stated Complaint: ABD PAIN, CONSTIPATION Hx Obtained From: Patient Onset/Duration: Started Hours Ago Pain Intensity: 8 Location of Pain: Diffuse - Allergy/Home Medications Allergies/Adverse Reactions: Allergies Allergy/AdvReac Type Severity Reaction Status Date / Time Penicillins Allergy Severe Rash/HIVES/SWOLLEN Verified 10/05/19 09:47 EYES ciprofloxacin [From Cipro] Allergy Congestion Verified 10/05/19 09:47 monosodium glutamate Allergy Unknown Verified 10/05/19 09:47 Reaction Details Home Medications: Home Medications Bisoprolol TAB* [Zebeta TAB*] 5 mg PO TID 05/14/17 [History Confirmed 10/12/19] Diltiazem TAB* [Cardizem 30 MG Tab*] 30 mg PO TID 08/03/17 [History Confirmed ] Albuterol Sulfate [Proventil Hfa] 2 puff INH Q4HR PRN 07/25/19 [History Confirmed 10/05/19] Aspirin TAB* [Aspirin 325 MG TAB*] 325 mg PO .EVERY OTHER DAY 07/25/19 [History Confirmed 10/12/19] Budesonide/Formote 80/4.5(NF) [Symbicort 80/4.5 (NF)] 2 puff INH BID PRN [History Confirmed 10/12/19] Eszopiclone (NF) [Lunesta (NF)] 0.5 tab PO BEDTIME PRN 07/25/19 [History Confirmed 10/12/19] Fluticasone NASAL SPRAY 50MCG* [Flonase NASAL SPRAY 50MCG*] 2 spray BOTH NARES ONCE PRN 07/25/19 [History Confirmed 10/12/19] HYDROcodone/ACETAMIN 5-325 MG* [Hudson 5-325 TAB*] 1 tab PO BID 07/25/19 [ History Confirmed 10/12/19] Isosorbide Mononitrate [Isosorbide Mononitrate ER] 60 mg PO BID 07/25/19 [ History Confirmed 10/12/19] Mexiletine CAP* [Mexitil CAP*] 150 mg PO TID 07/25/19 [History Confirmed ] Mupirocin 2% CREAM* [Bactroban 2% CREAM*] 1 applic TOPICAL TID PRN 07/25/19 [ History Confirmed 10/05/19] Nitroglycerin TAB 0.4 MG* 0.4 mg SL Q5M PRN 07/25/19 [History Confirmed 10/12/19 ] Silodosin(NF) [Rapaflo(NF)] 8 mg PO QPM 07/25/19 [History Confirmed 10/12/19] Ascorbic Acid TAB* [Vitamin C TAB*] 500 mg PO BID 10/05/19 [History Confirmed 10/12/19] Atorvastatin* [Lipitor 80 MG*] 80 mg PO BEDTIME 10/05/19 [History Confirmed ] Cholecalciferol (Vitamin D3) [Vitamin D3] 500 unit PO QAM 10/05/19 [History Confirmed 10/12/19] Ibuprofen TAB* [Advil TAB*] 400 mg PO BID 10/05/19 [History Confirmed 10/12/19] Multivit-Mins/Iron/Folic/Lycop [Centrum Men's Tablet] 1 tab PO QAM 10/05/19 [ History Confirmed 10/12/19] methylPREDNISolone [Medrol] 2 mg PO .EVERY OTHER DAY 10/05/19 [History Confirmed 10/12/19] oxyCODONE/Acetamin 5/325 MG* [Percocet 5/325 TAB*] 1 tab PO Q6H PRN #10 tab MDD 4 10/12/19 [Rx] Ondansetron ODT TAB* [Zofran Odt TAB*] 4 mg PO Q6H PRN #20 tab.odt 10/15/19 [Rx] PMH/Surg Hx/FS Hx/Imm Hx Endocrine/Hematology History: Denies: Hx Bone Marrow Disease, Hx Diabetes, Hx Thyroid Disease, Hx Anemia Cardiovascular History: Reports: Hx Angina - HX OF-PT REPORTS DX 2015-ON MEDICATION FOR (MEXILETINE), Hx Hypercholesterolemia, Hx Hypertension - HX OF- ON MEDICATION FOR-CONTROLLED, Other Cardiovascular Problems/Disorders - HX OF- PT REPORTS PVCs, PACs-ON MEDICATION MEXILETINE-NOW SLOW HEART RATE Denies: Hx Congestive Heart Failure, Hx Coronary Artery Disease, Hx Pacemaker /ICD Respiratory History: Reports: Hx Asthma - HX OF-PT REPORTS YRS AGO-PRN MEDICATION FOR-NOW NOT BAD-VERY RARE, Hx Chronic Obstructive Pulmonary Disease ( COPD), Other Respiratory Problems/Disorders - NEELA SCORE: NEELA HIGH RISK; STOP BANG SCORE=5 Denies: Hx Sleep Apnea GI History: Denies: Other GI Disorders History: Reports: Other Problems/Disorders - HX OF-PT REPORTS ENLARGED PROSTATED-ON MEDICATION FOR Denies: Hx Renal Disease Musculoskeletal History: Reports: Hx Back Problems - chronic back pain, Hx Bursitis - PT REPORTS RIGHT ELBOW BURSA, Other Musculoskeletal History Sensory History: Reports: Hx Contacts or Glasses - GLASSES Denies: Hx Cataracts, Hx Glaucoma, Hx Legally Blind, Hx Deafness, Hx Hearing Aid Opthamlomology History: Reports: Hx Contacts or Glasses - GLASSES Denies: Hx Cataracts, Hx Glaucoma, Hx Legally Blind Neurological History: Denies: Hx Nerve Disease, Other Neuro Impairments/Disorders Psychiatric History: Denies: Hx Anxiety, Hx Depression, Hx Panic Disorder - Cancer History Hx Chemotherapy: No - Surgical History Surgery Procedure, Year, and Place: INGUINAL HERNIA [id number]. [id number] Hx Anesthesia Reactions: No - Immunization History Date of Tetanus Vaccine: unk Date of Influenza Vaccine: none Infectious Disease History: No Infectious Disease History: Denies: Traveled Outside the [place] in Last 30 Days - Family History Known Family History: Positive: Cardiac Disease, Hypertension - Social History Alcohol Use: Rare Alcohol Amount: 1/2 GLASS Hx Substance Use: No Substance Use Type: Reports: None Hx Tobacco Use: No Smoking Status (MU): Never Smoked Tobacco Have You Smoked in the Last Year: No Review of Systems Positive: Chest Pain Positive: Abdominal Pain, Vomiting, Nausea, Other - Constipation All Other Systems Reviewed And Are Negative: Yes Physical Exam - Summary Physical Exam Summary: Appearance: The patient is well-nourished in no acute distress and in no acute pain. Skin: The skin is warm and dry, and skin color reflects adequate perfusion. HEENT: The head is normocephalic and atraumatic. The pupils are equal and reactive. The conjunctivae are clear and without drainage. Nares are patent and without drainage. Mouth reveals dry mucous membranes, and the throat is without erythema and exudate. The external ears are intact. The ear canals are patent and without drainage. The tympanic membranes are intact. Neck: The neck is supple with full range of motion and non-tender. There are no carotid bruits. There is no neck vein distension. Respiratory: Chest is non-tender. Lungs are clear to auscultation and breath sounds are symmetrical and equal. Cardiovascular: Heart is regular rate and rhythm. There is no murmur or rub auscultated. There is no peripheral edema and pulses are symmetrical and equal. Abdomen: The abdomen is soft and mild tenderness in RUQ with no rebound no guarding. There are normal bowel sounds heard in all four quadrants and there is no organomegaly palpated. Musculoskeletal: There is no back tenderness noted. Extremities are non-tender with full range of motion. There is good capillary refill. There is no peripheral edema or calf tenderness elicited. Neurological: Patient is alert and oriented to person, place and time. The patient has symmetrical motor strength in all four extremities. Cranial nerves are grossly intact. Deep tendon reflexes are symmetrical and equal in all four extremities. Psychiatric: The patient has an appropriate affect and does not exhibit any anxiety or depression. Triage Information Reviewed: Yes Vital Signs On Initial Exam: Initial Vitals Temp Pulse Resp BP Pulse Ox 97.6 F 63 14 137/67 94 10/15/19 09:32 10/15/19 09:32 10/15/19 09:32 10/15/19 09:32 10/15/19 09:32 Vital Signs Reviewed: Yes Procedures - Sedation Patient Received Moderate/Deep Sedation with Procedure: No Diagnostics - Vital Signs Vital Signs Temp Pulse Resp BP Pulse Ox 10/15/19 09:32 97.6 F 63 14 137/67 94 - Laboratory Result Diagrams: 10/15/19 10:13 10/15/19 10:13 Lab Statement: Any lab studies that have been ordered have been reviewed, and results considered in the medical decision making process. - Radiology CXR Radiology Interpretation Completed By: Radiologist Summary of Radiographic Findings: Posterior constophrenic angle airspace opacification (atelectasis versus infiltrate). ED Provider has reviewed this report. - CT Abdomen/Pelvis CT Interpretation Completed By: Radiologist Summary of CT Findings: 1. Recent cholecystectomy with stranding in the gallbladder fossal smooth enhancement along the common bile duct wall and a small right pleural effusion. These nonspecific findnigs may be postoperative in nature. 2. No organized fluid collection or ascites. 3. Atherosclerosis with coronary artery disease. ED Provider has reviewed this report. GIGU Course/Dx - Course Course Of Treatment: Mr. Hobbs presented complaining of constipation which has resolved until loose stools, abdominal pain which is coming and going and generalized weakness. He was nontoxic in appearance with stable vitals. His abdomen was mildly tender consistent with postoperative condition. He had no fever or leukocytosis. The patient had called Dr. Boss prior to coming here and came to the department to evaluate the patient. He requested a CT scan of the abdomen and that was obtained and found to be consistent with postoperative condition. - Diagnoses Provider Diagnoses: Weakness - Physician Notifications Discussed Care Of Patient With: Darci Boss - Surgery Time Discussed With Above Provider: 11:51 - Recommended CT Scan Instructed by Provider To: MD Will See In ED Discharge ED - Sign-Out/Discharge Documenting (check all that apply): Patient Departure - Discharge - Discharge Plan Condition: Stable Disposition: HOME Prescriptions: Ondansetron ODT TAB* [Zofran Odt TAB*] 4 mg PO Q6H PRN #20 tab.odt PRN Reason: Nausea/Vomiting Patient Education Materials: Weakness (ED) Referrals: Tray Wasserman MD [Primary Care Provider] - Additional Instructions: Follow up with your primary care provider. - Billing Disposition and Condition Condition: STABLE Disposition: Home - Attestation Statements Document Initiated by Jose Gibashok: Yes Documenting Scribe: Jhonny Lal Provider For Whom Carie is Documenting (Include Credential): Rambo Troncoso MD Scribashok Attestation: Jhonny Pierre, scribed for Rambo Troncoso MD on 10/15/19 at 1707. Scribe Documentation Reviewed: Yes Provider Attestation: The documentation as recorded by the Jhonny waldron accurately reflects the service I personally performed and the decisions made by me, Rambo Troncoso MD Status of Scribe Document: Viewed
[2019-10-15 10:22] LABS: ABS Eosinophils 0.1 10^3/ul (0-0.6); ABS Lymphocytes 0.3 10^3/ul (1.0-4.8); ABS Monocytes 0.2 10^3/ul (0-0.8); Eosinophil % 0.8 %; Hematocrit 40 % (42-52); Lymphocyte % 5.1 %; Mean Corpuscular HGB Conc 35 g/dL (31-36); Mean Corpuscular Hemoglobin 33 pg (27-31); Mean Corpuscular Volume 95 fL (80-94); Mean Platelet Volume 8.7 fL (7.4-10.4); Platelet Count 137 10^3/uL (150-450); Red Blood Count 4.25 10^6 /uL (4.18-5.48); Red Cell Distribution Width 13 % (10-15); White Blood Count 6.7 10^3/uL (3.5-10.8)
[2019-10-15 10:33] LABS: INR 1.12 (0.82-1.09)
[2019-10-15 10:39] LABS: Albumin 3.6 g/dL (3.2-5.2); Albumin/Globulin Ratio 1.4 (1-3); BUN/Creatinine Ratio 14.7 (8-20); C Reactive Protein 13.11 mg/L (<8.01); Calcium 8.9 mg/dL (8.6-10.3); EGFR African American 74.3 (>60); EGFR Non-African American 61.4 (>60); Globulin 2.6 g/dL (2-4); Potassium 3.9 mmol/L (3.5-5.0); Total Bilirubin 0.9 mg/dL (0.2-1.0); Total Protein 6.2 g/dL (6.4-8.9)
[2019-10-15] MEDS ORDERED: NS 0.9% 1000 ML** 1,000 ML IV ONE (10:53)
[2019-10-15] MEDS ORDERED: Ondansetron INJ* 2 MG/ML VIAL IV ONE (10:53)
[2019-10-15] MEDS ORDERED: Iohexol 300* (CONTRAST) 10 ML SDV IV ONE (12:57)
[2019-10-15 14:14] LABS: Urine Appearance Clear; Urine Bilirubin Negative (Negative); Urine Blood Negative (Negative); Urine Color Straw; Urine Glucose Negative (Negative); Urine Ketones Negative (Negative); Urine Nitrite Negative (Negative); Urine Protein Negative (Negative); Urine Specific Gravity 1.016 (1.010-1.030); Urine Urobilinogen Negative (Negative)
[2019-10-15 15:10] VITALS: BP 156/87
--- NOTE | 2019-10-15 17:57 | CONS ---
CC: [facility]; Dr. Tray Wasserman * CONSULTATION REPORT: DATE OF CONSULT: 10/15/19 - EMERGENCY DEPT LOCATION: Emergency room. REFERRING PROVIDER: Dr. Rambo Troncoso, in the emergency room. CHIEF COMPLAINT: Abdominal pain after laparoscopic cholecystectomy on 10/12/19. HISTORY OF PRESENT ILLNESS: Mr. Hernan Hobbs is a 74-year-old gentleman who underwent an elective laparoscopic cholecystectomy on , 10/12/[address] Allyson Gonsalves here at [facility]. This was done as an outpatient and the procedure went well and he was discharged home that night. He has been living at home alone while his who is with their daughter in [place] and he called in to the answering service early this morning with complaints of severe abdominal discomfort, which had started several hours prior. This was not associated with fever, shakes, chills, headache, sore throat, nausea, or vomiting. He had no shortness of breath. He felt that he had been constipated and tried some laxatives yesterday with no improvement and mainly described the pain is in the lower abdomen. On my discussion on the telephone, it was very difficult for me to elucidate the exact nature and location of his discomfort and in addition to the fact that he has a significant cardiac history, I instructed him to present to the emergency room for further evaluation and care. I did recommend that since he live alone that it was prudent to call 911 for ambulance transportation, but he was able to call a friend and arrived in a private vehicle. On being seen in the emergency room, he was noted to be afebrile with stable vital signs with heart rate in the 60s and 70s. Laboratory workup included a normal white blood cell count of 6.7 with no shift. His electrolytes, BUN and creatinine were essentially unremarkable. AST, ALT, and alkaline phosphatase were normal as was the total bilirubin. C-reactive protein of 13. His troponins were unremarkable. He underwent a chest x-ray, which showed some mild blunting of the right costophrenic angle probably consistent with prior surgery. There was no evidence of other acute disease. Due to the fact that he had just had prior surgery, he underwent a CT scan of the abdomen and pelvis. I did review these images. This shows findings consistent with a recent cholecystectomy with some stranding in the gallbladder fossa, but no evidence of fluid collection, air, abscess, or other acute findings. There was a small right pleural effusion as noted. Surgical consultation was obtained. PAST MEDICAL HISTORY: 1. Coronary artery disease. 2. Obstructive lung disease. 3. Hypercholesterolemia. 4. Hypertension. PAST SURGICAL HISTORY: Laparoscopic cholecystectomy. MEDICATIONS: Include: 1. Medrol. 2. Rapaflo. 3. Nitroglycerin p.r.n. 4. Multivitamins. 5. Mexitil. 6. Isosorbide mononitrate. 7. Ibuprofen p.r.n. 8. Fluticasone nasal spray. 9. Lunesta. 10. Diltiazem 30 mg daily. 11. Budesonide 2 puffs b.i.d. p.r.n. 12. Bisoprolol 5 mg t.i.d. 13. Atorvastatin 80 mg daily. 14. Aspirin 325 mg daily. 15. Albuterol p.r.n. ALLERGIES: Include PENICILLINS, CIPROFLOXACIN, and GLUTAMATE. SOCIAL HISTORY: He is , but his is presently in [place] with their daughter. He lives alone. 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 REVIEW OF SYSTEMS: As per above. Cerebrovascular: He has no dizziness or visual disturbances. Cardiovascular: He denied cardiac chest pain or shortness of breath. Pulmonary: He has not had any wheezing or sore throat. PHYSICAL EXAM: Temperature 97.6, pulse 76, blood pressure 148/73. In general, he is a somewhat older gentleman who seems to be in no acute distress. Lungs were clear to auscultation with normal respiratory effort. Heart was regular rate and rhythm without murmurs, rubs, or gallops. His abdomen is soft and nondistended. All 4 incisions were clean, dry, and intact. He had diminished bowel sounds throughout. He had some mild tenderness in the lower abdomen. There was no rebound, guarding, or masses. There were no hernias noted. Psychiatric: He is awake, alert, and oriented x3. IMPRESSION AND PLAN: Abdominal pain after a cholecystectomy 3 days prior. The patient had called in, he was quite vague about his symptoms and severity, and rapid onset of discomfort. While in the emergency room, he did have several loose bowel movements and felt better. Workup is essentially unremarkable as per above and I see no acute complications from his surgery. At this point, I am comfortable with having him be discharged home with office followup as originally scheduled. I have discussed all of this with Dr. Troncoso as well as the patient. [id number] #: [id number] [facility]
== END 2019-10-15 15:10 | disposition home or self-care (01) ==
LOC: ED 09:30
DX: R53.1 Weakness (principal); R10.9 Unspecified abdominal pain; K59.00 Constipation, unspecified; E78.00 Pure hypercholesterolemia, unspecified; I10 Essential (primary) hypertension; Z86.79 Personal history of other diseases of the circulatory system
CPT/HCPCS: 36415; 71046; 74177; 80053; 81003; 84484; 85025; 85610; 86140; 96374; 99283; J2405; Q9967

== ENCOUNTER 2021-03-31 01:00 | Observation (INO) ==
[2021-03-31 02:55] LABS: ABS Eosinophils 0.1 10^3/ul (0-0.6); ABS Lymphocytes 0.8 10^3/ul (1.0-4.8); ABS Monocytes 0.5 10^3/ul (0-0.8); ABS Neutrophils 3.1 10^3/ul (1.5-7.7); Eosinophil % 2.1 %; Hematocrit 40 % (42-52); Hemoglobin 14.1 g/dL (14.0-18.0); Mean Corpuscular HGB Conc 35 g/dL (31-36); Mean Corpuscular Hemoglobin 33 pg (27-31); Mean Corpuscular Volume 96 fL (80-94); Mean Platelet Volume 8.6 fL (7.4-10.4); Nucleated Red Blood Cells % 0.1; Platelet Count 153 10^3/uL (150-450); Red Blood Count 4.23 10^6 /uL (4.18-5.48); Red Cell Distribution Width 14 % (10-15); White Blood Count 4.6 10^3/uL (3.5-10.8)
[2021-03-31 02:59] LABS: INR 1.15 (0.86-1.15)
[2021-03-31 03:12] LABS: Alcohol, S < 13 mg/dL (<13)
[2021-03-31 03:14] LABS: ALT 34 U/L (7-52); AST 28 U/L (13-39); Albumin/Globulin Ratio 1.4 (1-3); Alkaline Phosphatase 129 U/L (35-149); Anion Gap 7 mmol/L (2-11); Blood Urea Nitrogen 18 mg/dL (6-24); C Reactive Protein < 1.00 mg/L (<8.01); CO2 Carbon Dioxide 25 mmol/L (22-32); Calcium 8.9 mg/dL (8.6-10.3); Chloride 104 mmol/L (101-111); EGFR African American 88.9 (>60); EGFR Non-African American 73.5 (>60); Globulin 2.8 g/dL (2-4); Glucose 110 mg/dL (70-100); Potassium 3.9 mmol/L (3.5-5.0); Sodium 136 mmol/L (135-145); Total Protein 6.8 g/dL (6.4-8.9)
[2021-03-31] MEDS ORDERED: Tetan/Diph/Pertus SYR(Tdap) 0.5 ML SYR(BOOSTRIX) use SYR contains LATEX IM ONE (06:15)
[2021-03-31 06:49] LABS: Urine Appearance Clear; Urine Bilirubin Negative (Negative); Urine Blood Negative (Negative); Urine Color Straw; Urine Glucose Negative (Negative); Urine Ketones Negative (Negative); Urine Nitrite Negative (Negative); Urine Protein Negative (Negative); Urine Specific Gravity 1.009 (1.002-1.030); Urine Urobilinogen Negative (Negative)
[2021-03-31] MEDS ORDERED: HYDROcodone/ACETAMIN 5/325 mg TAB PO PRN (08:36)
[2021-03-31] MEDS ORDERED: Albuterol HFA INHALER 8 gm MDI INH PRN (08:36)
[2021-03-31] MEDS ORDERED: Iohexol 350 (CONTRAST) 500 ML MDV IV ONE (09:28)
[2021-03-31] MEDS: Enoxaparin 40 MG/0.4 ML SYR SUBCUT SCH (09:32)
[2021-03-31] MEDS ORDERED: metroNIDAZOLE IV 500 MG/100ML 500 MG/100 ML BAG IVPB SCH (10:30)
[2021-03-31] MEDS: Isosorbide Mononit ER 60mg TAB PO SCH ×2 (13:02→18:08)
[2021-03-31] MEDS: Mometasone/Formoter 100/5 MDI INH SCH ×2 (13:03→19:30)
[2021-03-31] MEDS: DOXYcycline 100 MG in NS 0.9% 250 ml 250 ML IVPB SCH (13:05)
[2021-03-31] MEDS: metroNIDAZOLE IV 500 MG/100ML 500 MG/100 ML BAG IVPB SCH ×2 (14:52→20:55)
[2021-03-31] MEDS: Fluticasone NASAL SPRAY 50MCG 16 gm SPRAY BTL BOTH NARES SCH (15:07)
[2021-03-31 15:48] LABS: TSH Ultra Thyroid Stim Horm 2.17 mcIU/mL (0.34-5.60)
[2021-03-31 15:59] LABS: Folate > 20.00 ng/mL (5.90-24.80)
[2021-03-31 16:00] LABS: Vitamin B12 371 pg/mL (180-914)
[2021-04-01] MEDS: DOXYcycline 100 MG in NS 0.9% 250 ml 250 ML IVPB SCH ×2 (02:06→13:10)
[2021-04-01] MEDS: metroNIDAZOLE IV 500 MG/100ML 500 MG/100 ML BAG IVPB SCH ×2 (03:29→11:55)
[2021-04-01] MEDS: Isosorbide Mononit ER 60mg TAB PO SCH (05:03)
[2021-04-01] MEDS: Fluticasone NASAL SPRAY 50MCG 16 gm SPRAY BTL BOTH NARES SCH ×2 (05:35→08:34)
[2021-04-01 06:15] LABS: HDL Cholesterol 32.4 mg/dL
[2021-04-01] MEDS: Enoxaparin 40 MG/0.4 ML SYR SUBCUT SCH (08:27)
[2021-04-01] MEDS: Mometasone/Formoter 100/5 MDI INH SCH (09:24)
[2021-04-01] MEDS ORDERED: Ondansetron 4 mg VIAL 2 MG/ML 2 ml VIAL IV PRN (09:36)
[2021-04-01 12:16] VITALS: BP 124/72
[2021-04-02] MEDS ORDERED: Aspirin EC 81 mg TAB.EC (enteric coated) PO SCH (09:00)
[2021-04-04 12:13] LABS: Albumin/Globulin Ratio 1.11; Gamma Globulin 1.1 g/dL (0.6-1.6); Total Protein(PEP) 5.8 g/dL (6.3 - 7.9)
== END 2021-04-01 18:06 | disposition home or self-care (01) ==
LOC: MEDTELE 01:00 → ED 01:00 → MEDTELE 10:12
PROVIDERS: ADMIT Internal Medicine; ATTEND Internal Medicine